=== PATIENT | female | born 1960 | race African-American/Black ===

== ENCOUNTER 2016-10-26 04:39 | Emergency (ER) | payer MEDICAID ==
[2016-03-12 18:44] VITALS: BMI 38.5
[~2016-10-26 04:39] MED LIST: AMBIEN10 MG PO; ASPIRIN EC325 M1 PO; CELEXA40 MG PO; CLONAZEPAM2 MG/TAB PO; COMPAZINE10 MG PO; EC-NAPROSYN500 MG PO; GLUCOPHAGE500 MG PO; K-DUR20 MEQ PO; LEVAQUIN500 MG PO; LEVAQUIN750 MG PO; LISINOPRIL10 MG PO; LOPID600 MG PO; NEURONTIN 300300 MG PO; ORAPRED ODT10 MG/TAB PO; OXYCODONE HCL5 MG PO; OXYCONTIN15 MG PO; PHENERGAN25 M1 PO; PREDNISONE10 MG PO; PREDNISONE20 MG PO; ROBAXIN-750750 MG PO; SEROQUEL25 MG PO; SEROQUEL50 MG PO; VENTOLIN HFA18 GM INH; VISTARIL50 MG PO; ZANAFLEX2 M1 PO
[2016-10-26 05:42] LABS: BASOPHILS 0.6 % (0.0-2.0); EOSINOPHILS 2.5 % (0-7); HEMOGLOBIN 12.6 g/dL (12-16); IMMATURE GRANULOCYTES 0.2 % (0-5); LYMPHOCYTES 41.2 % (15-50); MCH 27.6 pg (26.0-34.0); MCHC 31.5 g/dL (31.0-37.0); MCV 87.7 fL (80.0-100.0); MEAN PLATELET VOLUME 9.3 fL (7.4-10.4); MONOCYTES 8.4 % (2-11); NEUTROPHILS 47.1 % (40-80); RBC 4.56 10x6/uL (4.00-5.40); RDW 16.1 % (11.5-14.5); WBC 10.1 10x3/uL (4.8-10.8)
[2016-10-26 05:59] LABS: PLATELET COUNT 316 10x3/uL (130-400)
[2016-10-26 06:06] LABS: ALBUMIN 3.3 g/dL (3.4-5.0); ALKALINE PHOSPHATASE 94 U/L (46-116); ALT (SGPT) 21 U/L (10-68); BILIRUBIN - TOTAL 0.12 mg/dL (0.2-1.3); CALC OSMOLALITY 285 mosm/kg (275-300); CARBON DIOXIDE 30.4 mmol/L (21.0-32.0); CHLORIDE - SERUM 104 mmol/L (98-107); CREATININE - SERUM 1.1 mg/dL (0.6-1.3); GLUCOSE 140 mg/dL (74-106); POTASSIUM - SERUM 3.9 mmol/L (3.5-5.1); PROTEIN - SERUM 7.5 g/dL (6.4-8.2); SODIUM 142 mmol/L (136-145); UREA NITROGEN 15 mg/dL (7-18); eGFR NON AFRICAN AMERICAN 55 mL/min (90-120)
[2016-10-26 06:13] LABS: AMYLASE - SERUM 28 U/L (25-115); LIPASE 175 U/L (73-393)
[2016-10-26 06:14] LABS: TROPONIN-I < 0.017 ng/mL (0.000-0.060)
== END 2016-10-26 06:19 | disposition home or self-care (01) ==
LOC: D.ER 04:39
PROVIDERS: Family Medicine
DX: M54.12 Radiculopathy, cervical region (principal); I50.9 Heart failure, unspecified; J44.9 Chronic obstructive pulmonary disease, unspecified; E11.9 Type 2 diabetes mellitus without complications

== ENCOUNTER 2017-01-02 18:14 | Emergency (ER) | payer MEDICAID ==
[2016-03-12 18:44] VITALS: BMI 38.5
== END 2017-01-02 20:40 | disposition home or self-care (01) ==
LOC: D.ER 18:14
DX: S16.1XXA Strain of muscle, fascia and tendon at neck level, initial encounter (principal); W18.30XA Fall on same level, unspecified, initial encounter; M25.511 Pain in right shoulder; M62.838 Other muscle spasm; F17.200 Nicotine dependence, unspecified, uncomplicated

== ENCOUNTER 2017-10-22 07:12 | Inpatient (IN) | payer MEDICAID ==
[~2017-10-22] VITALS: Ht 175.3 cm; Wt 108.9 kg
[2017-10-22 08:11] LABS: ANION GAP 15.7 mmol/L (8-16); BILIRUBIN - TOTAL 0.52 mg/dL (0.2-1.3); CALCIUM 9.3 mg/dL (8.5-10.1); CARBON DIOXIDE 26.5 mmol/L (21.0-32.0); CREATININE - SERUM 1.3 mg/dL (0.6-1.3); POTASSIUM - SERUM 3.2 mmol/L (3.5-5.1); PROTEIN - SERUM 8.2 g/dL (6.4-8.2)
[2017-10-22 08:27] LABS: APPEARANCE CLOUDY (CLEAR); BACTERIA MODERATE /hpf (NONE SEEN); BILIRUBIN NEGATIVE (NEGATIVE); COLOR YELLOW (YELLOW); EPITHELIAL CELLS OCC /hpf (0-5); GLUCOSE NEGATIVE (NEGATIVE); KETONE NEGATIVE (NEGATIVE); NITRITE NEGATIVE (NEGATIVE); PROTEIN 2+ mg/dL (NEGATIVE); SPECIFIC GRAVITY 1.015 (1.005-1.020); UROBILINOGEN NORMAL (NORMAL); WHITE CELLS - URINE >50 /hpf (0-5)
[2017-10-22 08:28] LABS: MUCUS <1+ /lpf (NONE SEEN)
[2017-10-22 08:42] LABS: HEMATOCRIT 41.6 % (36.0-48.0); MCH 28.3 pg (26.0-34.0); MCHC 33.7 g/dL (31.0-37.0); MCV 84.2 fL (80.0-100.0); MEAN PLATELET VOLUME 9.9 fL (7.4-10.4); PLATELET COUNT 318 10x3/uL (130-400); RBC 4.94 10x6/uL (4.00-5.40); RDW 15.3 % (11.5-14.5); WBC 26.8 10x3/uL (4.8-10.8)
[2017-10-22 09:03] LABS: LYMPHOCYTES 11 % (15-50); MONOCYTES 8 % (2-11); NEUTROPHILS 80 % (40-80)
[2017-10-22 09:04] LABS: ROULEAUX OCC
[2017-10-22 09:05] LABS: PLATELET ESTIMATE NORMAL; PLATELET MORPHOLOGY GIANT PLTS PRESENT
[2017-10-22] MEDS ORDERED: PROVENTIL/2.5 MG/3 M INH (16:25)
[2017-10-22 16:33] VITALS: BP 137/95
[2017-10-22 20:00] VITALS: BP 142/76
[2017-10-22 20:23] VITALS: BMI 35.5
[2017-10-22] MEDS ORDERED: BUTRANS1 EAC1 TRANSDERM (21:14)
[2017-10-22] MEDS ORDERED: NORVASC10 MG PO (21:37)
[2017-10-23 04:00] VITALS: BP 122/74
[2017-10-23 04:53] LABS: BASOPHILS 0 % (0-2); EOSINOPHILS 0.1 % (0-7); HEMATOCRIT 41.7 % (36.0-48.0); HEMOGLOBIN 13.7 g/dL (12-16); IMMATURE GRANULOCYTES 0.5 % (0-5); LYMPHOCYTES 12.1 % (15-50); MCH 27.6 pg (26.0-34.0); MCHC 32.9 g/dL (31.0-37.0); MCV 83.9 fL (80.0-100.0); MEAN PLATELET VOLUME 10.3 fL (7.4-10.4); MONOCYTES 9.9 % (2-11); NEUTROPHILS 77.4 % (40-80); PLATELET COUNT 213 10x3/uL (130-400); RBC 4.97 10x6/uL (4.00-5.40); RDW 15.4 % (11.5-14.5); WBC 20.4 10x3/uL (4.8-10.8)
[2017-10-23 04:59] LABS: ALBUMIN 2.7 g/dL (3.4-5.0); ANION GAP 17.4 mmol/L (8-16); BILIRUBIN - TOTAL 0.4 mg/dL (0.2-1.3); CALCIUM 8.8 mg/dL (8.5-10.1); CARBON DIOXIDE 26.8 mmol/L (21.0-32.0); CREATININE - SERUM 1.3 mg/dL (0.6-1.3); POTASSIUM - SERUM 3.2 mmol/L (3.5-5.1)
[2017-10-23] MEDS ORDERED: NORVASC10 MG PO (07:32)
[2017-10-23] MEDS ORDERED: COMPAZINE10 MG PO (07:33)
[2017-10-23] MEDS ORDERED: CYCLOBENZAPRINE10 MG PO (07:34)
[2017-10-23] MEDS ORDERED: HYDROCHLOROTHIA50 MG PO (07:37)
[2017-10-23] MEDS ORDERED: HYDROXYZINE HCL50 MG PO (07:37)
[2017-10-23] MEDS ORDERED: IBUPROFEN800 MG PO (07:38)
[2017-10-23] MEDS ORDERED: GLIMEPIRIDE2 MG PO (07:38)
[2017-10-23] MEDS ORDERED: ULTRAM50 MG PO (07:42)
[2017-10-23 08:38] VITALS: BP 145/88
[2017-10-23 11:02] VITALS: BMI 35.4
[2017-10-23 11:46] VITALS: BP 136/92
[2017-10-23 16:25] VITALS: BP 133/92
[2017-10-23 20:00] VITALS: BP 138/81
[2017-10-24] VITALS: BP 123/76
[2017-10-24 04:00] VITALS: BP 150/85
[2017-10-24 06:02] LABS: BASOPHILS 0.1 % (0-2); EOSINOPHILS 1.3 % (0-7); HEMATOCRIT 33.7 % (36.0-48.0); IMMATURE GRANULOCYTES 0.4 % (0-5); MCH 27.4 pg (26.0-34.0); MCHC 32.3 g/dL (31.0-37.0); MCV 84.7 fL (80.0-100.0); MEAN PLATELET VOLUME 9.7 fL (7.4-10.4); NEUTROPHILS 71.2 % (40-80); PLATELET COUNT 246 10x3/uL (130-400); RBC 3.98 10x6/uL (4.00-5.40); RDW 15.6 % (11.5-14.5); WBC 17.3 10x3/uL (4.8-10.8)
[2017-10-24 06:08] LABS: HEMOGLOBIN 10.9 g/dL (12-16)
[2017-10-24 06:30] LABS: ALBUMIN 2.2 g/dL (3.4-5.0); BILIRUBIN - TOTAL 0.18 mg/dL (0.2-1.3); CALCIUM 8.1 mg/dL (8.5-10.1); CARBON DIOXIDE 27.2 mmol/L (21.0-32.0); CREATININE - SERUM 1.2 mg/dL (0.6-1.3); POTASSIUM - SERUM 3.2 mmol/L (3.5-5.1); PROTEIN - SERUM 6.3 g/dL (6.4-8.2)
[2017-10-24 08:06] VITALS: BP 120/74
[2017-10-24 12:02] VITALS: BP 150/86
[2017-10-24 20:00] VITALS: BP 128/87
[2017-10-24 21:39] VITALS: Ht 175.3 cm; Wt 108.9 kg
[2017-10-25] VITALS (7 sets, daily range): BP systolic 124–151; BP diastolic 78–90
[2017-10-25 05:02] LABS: BASOPHILS 0.3 % (0-2); EOSINOPHILS 2.1 % (0-7); HEMATOCRIT 34.4 % (36.0-48.0); HEMOGLOBIN 10.9 g/dL (12-16); IMMATURE GRANULOCYTES 0.4 % (0-5); LYMPHOCYTES 32.8 % (15-50); MCH 27.3 pg (26.0-34.0); MCHC 31.7 g/dL (31.0-37.0); MCV 86.2 fL (80.0-100.0); MEAN PLATELET VOLUME 9.5 fL (7.4-10.4); MONOCYTES 10.4 % (2-11); PLATELET COUNT 252 10x3/uL (130-400); RBC 3.99 10x6/uL (4.00-5.40); RDW 15.5 % (11.5-14.5)
[2017-10-25 05:03] LABS: WBC 9.1 10x3/uL (4.8-10.8)
[2017-10-25 05:25] LABS: ALBUMIN 2.1 g/dL (3.4-5.0); CALCIUM 8.3 mg/dL (8.5-10.1); CARBON DIOXIDE 30.3 mmol/L (21.0-32.0); CREATININE - SERUM 0.9 mg/dL (0.6-1.3); POTASSIUM - SERUM 3.3 mmol/L (3.5-5.1); PROTEIN - SERUM 6.1 g/dL (6.4-8.2)
[2017-10-25 05:27] LABS: BILIRUBIN - TOTAL 0.1 mg/dL (0.2-1.3)
[2017-10-26 04:00] VITALS: BP 136/80
[2017-10-26 05:15] LABS: BASOPHILS 0.4 % (0-2); EOSINOPHILS 2.4 % (0-7); HEMATOCRIT 32.9 % (36.0-48.0); HEMOGLOBIN 10.4 g/dL (12-16); IMMATURE GRANULOCYTES 0.4 % (0-5); LYMPHOCYTES 32.5 % (15-50); MCH 27.2 pg (26.0-34.0); MCHC 31.6 g/dL (31.0-37.0); MCV 86.1 fL (80.0-100.0); MEAN PLATELET VOLUME 9.3 fL (7.4-10.4); NEUTROPHILS 51.3 % (40-80); PLATELET COUNT 257 10x3/uL (130-400); RBC 3.82 10x6/uL (4.00-5.40); RDW 15.4 % (11.5-14.5)
[2017-10-26 05:40] LABS: ALBUMIN 2.2 g/dL (3.4-5.0); ANION GAP 12.4 mmol/L (8-16); BILIRUBIN - TOTAL 0.1 mg/dL (0.2-1.3); CALCIUM 8.2 mg/dL (8.5-10.1); CARBON DIOXIDE 30.4 mmol/L (21.0-32.0); CREATININE - SERUM 0.9 mg/dL (0.6-1.3); POTASSIUM - SERUM 3.8 mmol/L (3.5-5.1); PROTEIN - SERUM 6.1 g/dL (6.4-8.2)
[2017-10-26 09:14] VITALS: BP 148/90
[2017-10-26 13:54] VITALS: BP 131/77
[2017-10-26 16:25] VITALS: BP 123/74
[2017-10-27] VITALS: BP 109/74
[2017-10-27 04:00] VITALS: BP 139/87
[2017-10-27 07:42] LABS: BASOPHILS 0.3 % (0-2); EOSINOPHILS 1.1 % (0-7); HEMATOCRIT 32.4 % (36.0-48.0); HEMOGLOBIN 10.2 g/dL (12-16); IMMATURE GRANULOCYTES 0.3 % (0-5); LYMPHOCYTES 22.5 % (15-50); MCH 27.2 pg (26.0-34.0); MCHC 31.5 g/dL (31.0-37.0); MCV 86.4 fL (80.0-100.0); NEUTROPHILS 64.8 % (40-80); PLATELET COUNT 285 10x3/uL (130-400); RBC 3.75 10x6/uL (4.00-5.40); RDW 15.3 % (11.5-14.5)
[2017-10-27 07:47] LABS: WBC 9.1 10x3/uL (4.8-10.8)
[2017-10-27 08:00] VITALS: BP 147/82
[2017-10-27 08:03] LABS: ALBUMIN 2.3 g/dL (3.4-5.0); ANION GAP 13.1 mmol/L (8-16); BILIRUBIN - TOTAL 0.1 mg/dL (0.2-1.3); CALCIUM 8.5 mg/dL (8.5-10.1); CARBON DIOXIDE 29.8 mmol/L (21.0-32.0); CREATININE - SERUM 1.1 mg/dL (0.6-1.3); POTASSIUM - SERUM 3.9 mmol/L (3.5-5.1); PROTEIN - SERUM 6.9 g/dL (6.4-8.2)
[2017-10-27 11:54] VITALS: BP 119/71
[2017-10-27 15:39] VITALS: BP 118/70
[2017-10-28] VITALS: BP 135/84
[2017-10-28 04:00] VITALS: BP 105/67
[2017-10-28 05:02] LABS: BASOPHILS 0.1 % (0-2); EOSINOPHILS 1.3 % (0-7); HEMOGLOBIN 10.4 g/dL (12-16); IMMATURE GRANULOCYTES 0.4 % (0-5); LYMPHOCYTES 28.8 % (15-50); MCH 27.2 pg (26.0-34.0); MCHC 31.5 g/dL (31.0-37.0); MCV 86.4 fL (80.0-100.0); MEAN PLATELET VOLUME 9.4 fL (7.4-10.4); MONOCYTES 14.4 % (2-11); PLATELET COUNT 310 10x3/uL (130-400); RBC 3.82 10x6/uL (4.00-5.40); RDW 15.2 % (11.5-14.5); WBC 7.4 10x3/uL (4.8-10.8)
[2017-10-28 05:24] LABS: ALBUMIN 2.2 g/dL (3.4-5.0); ANION GAP 11.5 mmol/L (8-16); BILIRUBIN - TOTAL 0.1 mg/dL (0.2-1.3); CARBON DIOXIDE 30.5 mmol/L (21.0-32.0); PROTEIN - SERUM 6.8 g/dL (6.4-8.2)
[2017-10-28 09:42] VITALS: BP 141/80
[2017-10-28 13:19] VITALS: BP 160/99
[2017-10-28 17:02] VITALS: BP 126/90
[2017-10-29] VITALS: BP 124/81
[2017-10-29 04:00] VITALS: BP 124/86
[2017-10-29 05:28] LABS: BASOPHILS 0.3 % (0-2); EOSINOPHILS 2.3 % (0-7); HEMATOCRIT 36.3 % (36.0-48.0); HEMOGLOBIN 11.5 g/dL (12-16); IMMATURE GRANULOCYTES 0.3 % (0-5); LYMPHOCYTES 44.6 % (15-50); MCH 27.5 pg (26.0-34.0); MCHC 31.7 g/dL (31.0-37.0); MCV 86.8 fL (80.0-100.0); MEAN PLATELET VOLUME 9.1 fL (7.4-10.4); MONOCYTES 12.6 % (2-11); NEUTROPHILS 39.9 % (40-80); PLATELET COUNT 348 10x3/uL (130-400); RBC 4.18 10x6/uL (4.00-5.40); WBC 6.1 10x3/uL (4.8-10.8)
[2017-10-29 05:48] LABS: ALBUMIN 2.3 g/dL (3.4-5.0); ALKALINE PHOSPHATASE 117 U/L (46-116); ALT (SGPT) 21 U/L (10-68); CALC OSMOLALITY 274 mosm/kg (275-300); CALCIUM 8.5 mg/dL (8.5-10.1); CARBON DIOXIDE 30.7 mmol/L (21.0-32.0); CHLORIDE - SERUM 101 mmol/L (98-107); CREATININE - SERUM 0.8 mg/dL (0.6-1.3); GLUCOSE 86 mg/dL (74-106); PROTEIN - SERUM 7.3 g/dL (6.4-8.2); SODIUM 139 mmol/L (136-145); UREA NITROGEN 7 mg/dL (7-18); eGFR NON AFRICAN AMERICAN 78 mL/min (90-120)
[2017-10-29 08:38] VITALS: BP 133/76
[2017-10-29 12:28] VITALS: BP 125/69
[2017-10-29 12:29] LABS: APPEARANCE CLEAR (CLEAR); COLOR YELLOW (YELLOW); GLUCOSE NEGATIVE (NEGATIVE); KETONE NEGATIVE (NEGATIVE); NITRITE NEGATIVE (NEGATIVE); PROTEIN NEGATIVE (NEGATIVE)
[2017-10-29 12:30] LABS: BILIRUBIN NEGATIVE (NEGATIVE); UROBILINOGEN NORMAL (NORMAL)
[2017-10-29 16:20] VITALS: BP 140/80
[2017-10-30] VITALS: BP 126/70
[2017-10-30 04:56] LABS: BASOPHILS 0.2 % (0-2); EOSINOPHILS 2.3 % (0-7); HEMATOCRIT 35.6 % (36.0-48.0); HEMOGLOBIN 11.3 g/dL (12-16); IMMATURE GRANULOCYTES 0.5 % (0-5); LYMPHOCYTES 48.4 % (15-50); MCH 27.6 pg (26.0-34.0); MCHC 31.7 g/dL (31.0-37.0); MCV 86.8 fL (80.0-100.0); MEAN PLATELET VOLUME 8.8 fL (7.4-10.4); MONOCYTES 12.4 % (2-11); NEUTROPHILS 36.2 % (40-80); PLATELET COUNT 320 10x3/uL (130-400); RDW 14.9 % (11.5-14.5)
[2017-10-30 05:03] LABS: WBC 4.3 10x3/uL (4.8-10.8)
[2017-10-30 05:13] LABS: ALBUMIN 2.2 g/dL (3.4-5.0); ALKALINE PHOSPHATASE 105 U/L (46-116); ALT (SGPT) 17 U/L (10-68); CALC OSMOLALITY 276 mosm/kg (275-300); CALCIUM 8.1 mg/dL (8.5-10.1); CHLORIDE - SERUM 103 mmol/L (98-107); CREATININE - SERUM 0.8 mg/dL (0.6-1.3); GLUCOSE 104 mg/dL (74-106); POTASSIUM - SERUM 3.5 mmol/L (3.5-5.1); PROTEIN - SERUM 6.6 g/dL (6.4-8.2); SODIUM 140 mmol/L (136-145); UREA NITROGEN 7 mg/dL (7-18); eGFR NON AFRICAN AMERICAN 78 mL/min (90-120)
[2017-10-30 06:00] VITALS: BP 116/76
[2017-10-30 08:42] VITALS: BP 142/81
[2017-10-30 11:49] VITALS: BP 160/79
[2017-10-30 15:51] VITALS: BP 132/83
[2017-10-30 20:00] VITALS: BP 152/109
[2017-10-31 04:00] VITALS: BP 145/90
[2017-10-31 05:46] LABS: BASOPHILS 0.3 % (0-2); EOSINOPHILS 1.3 % (0-7); HEMATOCRIT 37.5 % (36.0-48.0); HEMOGLOBIN 11.7 g/dL (12-16); IMMATURE GRANULOCYTES 0.2 % (0-5); LYMPHOCYTES 54.7 % (15-50); MCHC 31.2 g/dL (31.0-37.0); MCV 86.6 fL (80.0-100.0); MEAN PLATELET VOLUME 9.1 fL (7.4-10.4); MONOCYTES 8.4 % (2-11); NEUTROPHILS 35.1 % (40-80); PLATELET COUNT 339 10x3/uL (130-400); RBC 4.33 10x6/uL (4.00-5.40); RDW 15.1 % (11.5-14.5); WBC 5.9 10x3/uL (4.8-10.8)
[2017-10-31 06:19] LABS: ALBUMIN 2.4 g/dL (3.4-5.0); BILIRUBIN - TOTAL 0.1 mg/dL (0.2-1.3); CALCIUM 8.4 mg/dL (8.5-10.1); CREATININE - SERUM 0.9 mg/dL (0.6-1.3); PROTEIN - SERUM 7.1 g/dL (6.4-8.2)
[2017-10-31 08:41] VITALS: BP 123/82
[2017-10-31] MEDS ORDERED: BUTRANS1 EAC1 TRANSDERM (09:44)
[2017-10-31] MEDS ORDERED: LEVAQUIN750 MG PO (09:45)
[2017-10-31] MEDS ORDERED: IMITREX50 MG PO (09:45)
[2017-10-31] MEDS ORDERED: ULTRAM50 MG PO (09:47)
[2017-10-31] MEDS ORDERED: OXY IR30 MG PO (09:49)
[2017-10-31 11:55] VITALS: BP 128/79
== END 2017-10-31 13:00 | disposition home health service (06) | DRG 690 ==
LOC: D.ER 07:12 → D.MS 13:28
PROVIDERS: Family Medicine; Legal Medicine; Student in an Organized Health Care Education/Training Program
PROC: 05HC33Z Insertion of Infusion Device into Left Basilic Vein, Percutaneous Approach (ICD-10-PCS; principal; 2017-10-23)
PROC: B54NZZA Ultrasonography of Left Upper Extremity Veins, Guidance (ICD-10-PCS; 2017-10-23)
PROC: 05HC33Z Insertion of Infusion Device into Left Basilic Vein, Percutaneous Approach (ICD-10-PCS; 2017-10-27)
PROC: B54NZZA Ultrasonography of Left Upper Extremity Veins, Guidance (ICD-10-PCS; 2017-10-27)
DX: N12 Tubulo-interstitial nephritis, not specified as acute or chronic (principal); B96.20 Unspecified Escherichia coli [E. coli] as the cause of diseases classified elsewhere; K80.80 Other cholelithiasis without obstruction; R51 Headache; E11.43 Type 2 diabetes mellitus with diabetic autonomic (poly)neuropathy; R53.83 Other fatigue

== ENCOUNTER 2018-02-12 06:37 | Emergency (ER) | payer MEDICAID ==
[2017-10-24 21:39] VITALS: BMI 35.4
[~2018-02-12 06:37] MED LIST changes: +BUTRANS1 EAC1 TRANSDERM; +CYCLOBENZAPRINE10 MG PO; +GLIMEPIRIDE2 MG PO; +HYDROCHLOROTHIA50 MG PO; +HYDROXYZINE HCL50 MG PO; +IBUPROFEN800 MG PO; +IMITREX50 MG PO; +NORVASC10 MG PO; +OXY IR30 MG PO; +PROVENTIL/2.5 MG/3 M INH; +ULTRAM50 MG PO
== END 2018-02-12 08:35 | disposition home or self-care (01) ==
LOC: D.ER 06:37
DX: R51 Headache (principal); I50.9 Heart failure, unspecified; E11.9 Type 2 diabetes mellitus without complications; G70.00 Myasthenia gravis without (acute) exacerbation

== ENCOUNTER 2018-04-13 07:35 | Emergency (ER) | payer MEDICAID ==
[~2018-04-13] VITALS: Ht 175.3 cm; Wt 117.9 kg
[2018-04-13 07:38] VITALS: Ht 175.3 cm; Wt 117.9 kg
[2018-04-13 10:41] LABS: CALC OSMOLALITY 276 mosm/kg (275-300); CALCIUM 8.5 mg/dL (8.5-10.1); CARBON DIOXIDE 24.2 mmol/L (21.0-32.0); CHLORIDE - SERUM 104 mmol/L (98-107); CREATININE - SERUM 0.8 mg/dL (0.6-1.3); GLUCOSE 96 mg/dL (74-106); POTASSIUM - SERUM 5.1 mmol/L (3.5-5.1); SODIUM 139 mmol/L (136-145); UREA NITROGEN 9 mg/dL (7-18); eGFR NON AFRICAN AMERICAN 78 mL/min (90-120)
[2018-04-13 10:57] LABS: HEMATOCRIT 48.8 % (36.0-48.0); HEMOGLOBIN 15.4 g/dL (12-16); MCH 27.8 pg (26.0-34.0); MCHC 31.6 g/dL (31.0-37.0); MCV 88.1 fL (80.0-100.0); MEAN PLATELET VOLUME 10.2 fL (7.4-10.4); PLATELET COUNT 332 10x3/uL (130-400); RBC 5.54 10x6/uL (4.00-5.40); RDW 15.6 % (11.5-14.5); WBC 7.9 10x3/uL (4.8-10.8)
[2018-04-13 11:15] VITALS: BP 118/71
[2018-04-13 13:07] LABS: BASOPHILS 2 % (0-2); EOSINOPHILS 1 % (0-7); LYMPHOCYTES 59 % (15-50); MONOCYTES 12 % (2-11); NEUTROPHILS 25 % (40-80); PLATELET ESTIMATE INCREASED; PLATELET MORPHOLOGY PLT CLUMPS PRESENT
== END 2018-04-13 11:17 | disposition home or self-care (01) ==
LOC: D.ER 07:35
PROVIDERS: Family Medicine
DX: G43.909 Migraine, unspecified, not intractable, without status migrainosus (principal); E11.9 Type 2 diabetes mellitus without complications; G70.00 Myasthenia gravis without (acute) exacerbation; I10 Essential (primary) hypertension; I50.9 Heart failure, unspecified; F17.200 Nicotine dependence, unspecified, uncomplicated

== ENCOUNTER 2018-06-16 14:30 | Emergency (ER) | payer MEDICAID ==
[~2018-06-16] VITALS: Ht 175.3 cm; Wt 68.2 kg
[2018-06-16 14:53] VITALS: Ht 175.3 cm; Wt 68.2 kg
[2018-06-16 16:49] LABS: APPEARANCE CLEAR (CLEAR); BILIRUBIN NEGATIVE (NEGATIVE); COLOR YELLOW (YELLOW); GLUCOSE NEGATIVE (NEGATIVE); KETONE NEGATIVE (NEGATIVE); NITRITE NEGATIVE (NEGATIVE); PROTEIN NEGATIVE (NEGATIVE); SPECIFIC GRAVITY 1.015 (1.005-1.020); UROBILINOGEN NORMAL (NORMAL)
[2018-06-16 17:03] LABS: UDS - AMPHET NEGATIVE QUAL (NEGATIVE); UDS - BARB NEGATIVE QUAL (NEGATIVE); UDS - BENZO POSITIVE QUAL (NEGATIVE); UDS - COCAINE NEGATIVE QUAL (NEGATIVE); UDS - OPIATE NEGATIVE QUAL (NEGATIVE)
[2018-06-16 17:12] LABS: UDS - PCP NEGATIVE QUAL (NEGATIVE); UDS - THC NEGATIVE QUAL (NEGATIVE)
[2018-06-16 17:29] LABS: HEMATOCRIT 43.2 % (36.0-48.0); MCHC 32.4 g/dL (31.0-37.0); MCV 86.4 fL (80.0-100.0); MEAN PLATELET VOLUME 9.6 fL (7.4-10.4); PLATELET COUNT 359 10x3/uL (130-400); RDW 15.3 % (11.5-14.5); WBC 8.2 10x3/uL (4.8-10.8)
[2018-06-16 17:56] LABS: ANION GAP 10.1 mmol/L (8-16); BILIRUBIN - TOTAL 0.16 mg/dL (0.2-1.3); CALCIUM 8.9 mg/dL (8.5-10.1); CARBON DIOXIDE 31.2 mmol/L (21.0-32.0); CREATININE - SERUM 1.3 mg/dL (0.6-1.3); POTASSIUM - SERUM 3.3 mmol/L (3.5-5.1); PROTEIN - SERUM 7.6 g/dL (6.4-8.2)
[2018-06-16 18:05] LABS: THYROID STIMULATING HORMONE 0.96 uIU/mL (0.36-3.74)
[2018-06-16 18:33] LABS: EOSINOPHILS 1 % (0-7); LYMPHOCYTES 55 % (15-50); MONOCYTES 1 % (2-11); NEUTROPHILS 43 % (40-80)
[2018-06-16 18:34] LABS: PLATELET ESTIMATE NORMAL
[2018-06-16 18:35] VITALS: BP 110/71
== END 2018-06-16 18:36 | disposition home or self-care (01) ==
LOC: D.ER 14:30
PROVIDERS: Emergency Medicine
DX: F32.9 Major depressive disorder, single episode, unspecified (principal); G89.29 Other chronic pain; E11.9 Type 2 diabetes mellitus without complications; F17.200 Nicotine dependence, unspecified, uncomplicated

== ENCOUNTER 2018-06-23 14:31 | Emergency (ER) | payer MEDICAID ==
[~2018-06-23] VITALS: Ht 175.3 cm; Wt 77.3 kg
[2018-06-23 14:40] VITALS: BP 104/77; Ht 175.3 cm; Wt 77.3 kg
== END 2018-06-23 18:41 | disposition left against medical advice (07) ==
LOC: D.ER 14:31
DX: R51 Headache (principal)

== ENCOUNTER → 2019-04-12 13:08 | Outpatient (CLI) | payer MEDICAID ==
[2018-06-23 14:40] VITALS: BMI 25.1
== END | disposition home or self-care (01) ==
LOC: D.RAD 13:08
PROVIDERS: ATTEND Emergency Medicine
DX: M79.651 Pain in right thigh (principal)

== ENCOUNTER 2019-07-29 11:47 | Emergency (ER) | payer MEDICAID ==
[~2019-07-29] VITALS: Ht 175.3 cm; Wt 118.2 kg
[2019-07-29 11:53] VITALS: Ht 175.3 cm; Wt 118.2 kg
[2019-07-29] MEDS ORDERED: MAXALT MLT10 MG/TAB PO (12:03)
[2019-07-29] MEDS ORDERED: PHENERGAN25 M1 PO (12:04)
[2019-07-29] MEDS ORDERED: LISINOPRIL-HCT1 EAC7 PO (12:04)
[2019-07-29] MEDS ORDERED: ABILIFY10 MG PO (12:05)
[2019-07-29] MEDS ORDERED: CARAFATE1 G PO (12:05)
[2019-07-29] MEDS ORDERED: PROZAC40 MG PO (12:06)
[2019-07-29] MEDS ORDERED: LIPITOR20 MG PO (12:06)
[2019-07-29] MEDS ORDERED: VALIUM5 MG PO (12:07)
[2019-07-29] MEDS ORDERED: ELAVIL25 MG PO (12:07)
[2019-07-29 13:32] LABS: BASOPHILS 0.2 % (0-2); EOSINOPHILS 0.9 % (0-7); HEMATOCRIT 35.9 % (36.0-48.0); HEMOGLOBIN 10.9 g/dL (12-16); IMMATURE GRANULOCYTES 0.2 % (0-5); LYMPHOCYTES 28.4 % (15-50); MCH 26.6 pg (26.0-34.0); MCHC 30.4 g/dL (31.0-37.0); MCV 87.6 fL (80.0-100.0); MEAN PLATELET VOLUME 8.9 fL (7.4-10.4); NEUTROPHILS 64.3 % (40-80); PLATELET COUNT 328 10x3/uL (130-400); RDW 15.8 % (11.5-14.5); WBC 8.9 10x3/uL (4.8-10.8)
[2019-07-29 13:46] LABS: CALC OSMOLALITY 276 mosm/kg (275-300); CALCIUM 8.3 mg/dL (8.5-10.1); CARBON DIOXIDE 34.6 mmol/L (21.0-32.0); CHLORIDE - SERUM 103 mmol/L (98-107); GLUCOSE 86 mg/dL (74-106); POTASSIUM - SERUM 3.7 mmol/L (3.5-5.1); SODIUM 140 mmol/L (136-145); UREA NITROGEN 10 mg/dL (7-18); eGFR NON AFRICAN AMERICAN 61 mL/min (90-120)
[2019-07-29 14:01] LABS: ALBUMIN 2.6 g/dL (3.4-5.0); ALKALINE PHOSPHATASE 131 U/L (46-116); ALT (SGPT) 31 U/L (10-68); AMYLASE - SERUM 24 U/L (25-115); BILIRUBIN - TOTAL 0.19 mg/dL (0.2-1.3); CKMB 3.2 U/L (0.0-3.6); CREATINE KINASE 2817 UL (21-215); LIPASE 159 U/L (73-393); PROTEIN - SERUM 7.1 g/dL (6.4-8.2); TROPONIN-I < 0.017 ng/mL (0.000-0.060)
[2019-07-29] MEDS ORDERED: OMEPRAZOLE20 M1 PO (15:43)
[2019-07-29] MEDS ORDERED: PHENERGAN25 MG RC (15:43)
[2019-07-29 15:56] VITALS: BP 123/86
== END 2019-07-29 16:32 | disposition home or self-care (01) ==
LOC: D.ER 11:47
PROVIDERS: Emergency Medicine
DX: R10.9 Unspecified abdominal pain (principal); R11.2 Nausea with vomiting, unspecified

== ENCOUNTER 2019-11-07 09:49 | Inpatient (IN) | payer MEDICAID ==
[~2019-11-07] VITALS: Ht 152.4 cm; Wt 108.9 kg
[~2019-11-07 09:49] MED LIST changes: +ABILIFY10 MG PO; +CARAFATE1 G PO; +ELAVIL25 MG PO; +LIPITOR20 MG PO; +LISINOPRIL-HCT1 EAC7 PO; +MAXALT MLT10 MG/TAB PO; +OMEPRAZOLE20 M1 PO; +PHENERGAN25 MG RC; +PROZAC40 MG PO; +VALIUM5 MG PO
[2019-11-07 10:20] VITALS: BP 105/43
[2019-11-07 10:25] LABS: BASOPHILS 0.2 % (0-2); EOSINOPHILS 1.6 % (0-7); HEMATOCRIT 32.8 % (36.0-48.0); HEMOGLOBIN 10.3 g/dL (12-16); IMMATURE GRANULOCYTES 0.1 % (0-5); LYMPHOCYTES 36.1 % (15-50); MCHC 31.4 g/dL (31.0-37.0); MCV 86.1 fL (80.0-100.0); MEAN PLATELET VOLUME 8.8 fL (7.4-10.4); MONOCYTES 7.8 % (2-11); NEUTROPHILS 54.2 % (40-80); RBC 3.81 10x6/uL (4.00-5.40); RDW 17.5 % (11.5-14.5); WBC 8.6 10x3/uL (4.8-10.8)
[2019-11-07 10:26] LABS: PLATELET COUNT 219 10x3/uL (130-400)
[2019-11-07 10:33] LABS: APTT 30.6 SECONDS (22.8-39.4); INR 0.96 (0.85-1.17); PROTIME 12.7 SECONDS (11.6-15.0)
[2019-11-07 10:40] LABS: CALC OSMOLALITY 276 mosm/kg (275-300); CALCIUM 8.4 mg/dL (8.5-10.1); CARBON DIOXIDE 27.7 mmol/L (21.0-32.0); CHLORIDE - SERUM 103 mmol/L (98-107); CREATININE - SERUM 1.2 mg/dL (0.6-1.3); POTASSIUM - SERUM 4.3 mmol/L (3.5-5.1); SODIUM 137 mmol/L (136-145); UREA NITROGEN 16 mg/dL (7-18); eGFR NON AFRICAN AMERICAN 49 mL/min (90-120)
[2019-11-07 10:41] LABS: GLUCOSE 143 mg/dL (74-106)
[2019-11-07 10:54] LABS: ALBUMIN 2.4 g/dL (3.4-5.0); ALKALINE PHOSPHATASE 116 U/L (30-120); ALT (SGPT) 31 U/L (10-68); BILIRUBIN - TOTAL 0.32 mg/dL (0.2-1.3); CKMB 2.6 U/L (0.0-3.6); PRO BNP 71 pg/mL (0-125); PROTEIN - SERUM 7.1 g/dL (6.4-8.2)
[2019-11-07 10:56] LABS: CREATINE KINASE 1711 UL (21-215); TROPONIN-I < 0.017 ng/mL (0.000-0.060)
[2019-11-07 11:20] VITALS: BP 103/58
--- NOTE | 2019-11-07 12:00 | NUR ---
PT ASSISTED WITH TRANSFERING TO BEDSIDE TOILET AND BACK INTO BED. PT LYING IN BED, RESPIRATIONS EVEN AND UNLABORED. NO SIGNS OF DISRESS. CALL LIGHT IN REACH. WILL CONTINUE TO MONITOR.
--- NOTE | 2019-11-07 12:36 | NUR ---
URINE SENT TO LAB AT THIS TIME.
[2019-11-07 12:47] LABS: BILIRUBIN NEGATIVE (NEGATIVE); GLUCOSE NEGATIVE (NEGATIVE); KETONE NEGATIVE (NEGATIVE); NITRITE NEGATIVE (NEGATIVE); SPECIFIC GRAVITY 1.005 (1.005-1.020)
--- NOTE | 2019-11-07 15:40 | NUR ---
PT ARRIVES TO ROOM VIA STRETCHER ESCORTED BY HOSPITAL STAFF. PT IS AAO X 4. RESPIRATIONS ARE EVEN AND UNLABORED. O2 VIA NC @ 2L. PT REPORTS PAIN TO LEFT SHOULDER BLADE AREA WHEN COUGHING. PT WITH FREQUENT PRODUCTIVE COUGH. PT STATES CONCERNS RELATED TO HOME MEDICATION. WILL REVIEW. PT REPORTS PAIN IS GENERALIZED AND IS DESCRIBED CHRONIC IN NATURE. PT AMBULATES FROM STRETCHER TO BED WITH STANDBY ASSIST. PT DENIES PRESENCE OF DIZZINESS UPON AMBULATION. PT WITH SCABS TO BLE. 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 ALL FALL PRECAUTIONS IN PLACE. BRYAN ALARM IS ON AND WORKING. BED IS IN THE LOWEST POSITION. CALL LIGHT AND BEDSIDE TABLE ARE WITHIN REACH. SIDE RAILS X 2. PT DENIES FURTHER NEEDS. DROPLET PRECAUTIONS PLACED. WILL CONT TO MONITOR.
[2019-11-07] MEDS ORDERED: PERCOCET 7.5/321 TAB (15:51)
[2019-11-07 16:02] VITALS: BP 118/66
--- NOTE | 2019-11-07 17:53 | NUR ---
GRINDER SET UP OPERATOR SURFACE PLACED PER ORDER. INCENTIVE SPIROMETER AT BEDSIDE. PT EDUCATED ON USE AND IMPORTANCE OF USE OF IS. PT VERBALIZES UNDERSTANDING AND GIVES APPROPRIATE DEMONSTRATION. PT DENIES FURTHER NEEDS. FALL PRECAUTIONS IN PLACE. BED IS IN THE LOWEST POSITION. CALL LIGHT AND BEDSIDE TABLE ARE WITIHN REACH. SIDE RIALS X 2
[2019-11-07 20:00] VITALS: BP 115/72
--- NOTE | 2019-11-07 21:00 | NUR ---
AWAKE,ALERT, NO COMPLAINTS VOICED. RESP UNLABORED. NO DISTESS NOTED. IV TO RIGHT HAND INTACT WITHOUT REDNESS OR EDEMA NOTED. CL IN REACH
[2019-11-08] VITALS: BP 110/64
--- NOTE | 2019-11-08 02:10 | NUR ---
I have reviewed this patient and I concur with the Shift Assessment completed by the Licensed Practical Nurse today this shift.
[2019-11-08 04:00] VITALS: BP 109/55
[2019-11-08 04:50] LABS: BASOPHILS 0.3 % (0-2); EOSINOPHILS 1.5 % (0-7); HEMATOCRIT 32.9 % (36.0-48.0); HEMOGLOBIN 10.2 g/dL (12-16); IMMATURE GRANULOCYTES 0.3 % (0-5); LYMPHOCYTES 36.2 % (15-50); MCH 26.8 pg (26.0-34.0); MCV 86.4 fL (80.0-100.0); MEAN PLATELET VOLUME 8.9 fL (7.4-10.4); MONOCYTES 8.9 % (2-11); NEUTROPHILS 52.8 % (40-80); PLATELET COUNT 244 10x3/uL (130-400); RBC 3.81 10x6/uL (4.00-5.40); RDW 17.6 % (11.5-14.5); WBC 7.9 10x3/uL (4.8-10.8)
[2019-11-08 05:22] LABS: ANION GAP 10.6 mmol/L (8-16); CARBON DIOXIDE 27.6 mmol/L (21.0-32.0); POTASSIUM - SERUM 4.2 mmol/L (3.5-5.1)
--- NOTE | 2019-11-08 07:15 | NUR ---
REC'D IN BED. RESP EVEN AND UNLABORED WITH NO DISTRESS NOTED. CAN EXPRESS NEEDS AND WANTS. NO C/O NOTED OR VOICED. ASSESSMENT COMPLETED. C/L IN REACH AT BEDSIDE.
[2019-11-08 08:23] VITALS: BP 135/77
--- NOTE | 2019-11-08 12:17 | NUR ---
WAS MEDICATED WITH OXY PER ORDERS AT THIS TIME FOR C/O GENERALIZED PAIN RATING 9/10 ON PAIN SCALE. C/L IN REACH AT BEDSIDE.
[2019-11-08 12:18] VITALS: BP 120/68
[2019-11-08 13:02] VITALS: Ht 152.4 cm; Wt 108.9 kg
[2019-11-08 16:43] VITALS: BP 139/78
[2019-11-08 16:54] LABS: CREATINE KINASE 728 UL (21-215); TROPONIN-I < 0.017 ng/mL (0.000-0.060)
[2019-11-08 16:55] LABS: CKMB 0.4 U/L (0.0-3.6)
--- NOTE | 2019-11-08 18:45 | NUR ---
I have reviewed this patient and I concur with the Shift Assessment completed by the Licensed Practical Nurse today this shift.
--- NOTE | 2019-11-08 19:11 | NUR ---
MEDICATED AT THIS TIME WITH OXY 5 FOR PAIN RATING 9/10 ON PAIN SCALE AND VALIUM FOR MUSCLE SPAMS. C/L IN REACH AT BEDSIDE.
--- NOTE | 2019-11-08 21:18 | NUR ---
TEMP OF 101.1 GAVE TYLENOL 650MG. P.O. AT 2109
[2019-11-08 21:39] VITALS: BP 112/66
[2019-11-09 01:26] VITALS: BP 102/59
--- NOTE | 2019-11-09 02:50 | NUR ---
iv INFILLTRATED TO RIGHT HAND. ATEMPTED TO RESTART PT PULLED BACK HER HAND AND STATED THAT HURT DON'T I WANT SOMEONE THAT KNOEWS WHAT THEY ARE DOING, I'M NOT GOING TO TO BE STUCK 2-3 TIMES AND HAVE MY HAND HURTTING. EDUCATED PT THAT IT HURTS SOMETIMES WHEN AN IV IS STARTED. REFUSED TOMLET THIS NURSE ATEMPT AGAING EDUCATED HER THAT WE CAN PUT IN A VASCYLAR ACCESS CONSULT. THIS IS WHAT SHE WANTS.
[2019-11-09 05:30] VITALS: BP 152/67
[2019-11-09] MEDS ORDERED: TAMIFLU75 MG PO (08:46)
--- NOTE | 2019-11-09 09:00 | NUR ---
ASKED PT IF THIS NURSE COULD RESITE HER IV AT THIS TIME PT STATED " LET'S DO IT LATER BABY. I FEEL BAD AT THIS MOMENT." NURSE VOICE UNDERSTANDING AND LEFT ROOM. C/L IN REACH AT BEDSIDE.
--- NOTE | 2019-11-09 09:13 | NUR ---
PT WAS MEDICATED WITH APAP 650MG FOR ELEVATED TEMP OF 101.3. WILL RECHECK IN AN HOUR. C/L IN REACH AT BEDSIDE.
[2019-11-09 09:28] VITALS: BP 122/69
--- NOTE | 2019-11-09 10:15 | NUR ---
RECHECKED PT TEMP AT THIS TIME WITH TEMP BEING 102.4. CALLED WAS PLACED TO ASYA MICHAUD. AWAITING RESPONSE. C/L IN REACH AT BEDSIDE.
--- NOTE | 2019-11-09 10:45 | NUR ---
REC'D RESPONSE BACK FROM Sonali CHILDRESS APN RECIEVED ORDERS FOR MORTIN 800 MG Q 6 HRS PRN AND BLOOD CULTURE X 2. C/L SHE WAS GIVEN PRN MORTIN AT THIS TIME. C/L IN REACH AT BEDSIDE.
--- NOTE | 2019-11-09 11:08 | NUR ---
BATH AND LINEN CHANGED AT THIS TIME VIA THIS NURSE. PT VERY THANKFUL FOR BATH STATING NO ONE HAS EVEN OFFERED TO GIVEN ME A BATH SINCE I BEEN HERE. C/L IN REACH AT BEDSIDE.
[2019-11-09 12:45] VITALS: BP 120/65
--- NOTE | 2019-11-09 14:29 | NUR ---
I have reviewed this patient and I concur with the Shift Assessment completed by the Licensed Practical Nurse today this shift.
--- NOTE | 2019-11-09 16:02 | NUR ---
ATTEMPTED TO RESITE PT IV WITH TWO UNSUCCESSFUL STICK. THEN ANOTHER NURSE CAME AND ATTEMPTED TO STICK PT X ONE WHICH WAS UNSUCCESSFUL. C/L IN REACH AT BEDSIDE.
--- NOTE | 2019-11-09 16:32 | NUR ---
JASWANT IRAHETA WAS CALLED ABOUT NOT BEING ABLE TO RESITE IV AT THIS TIME. CONTRACT PROJECT MANAGER STATED JUST LIVE IV OUT IF PT IS DRINKING WELL. THIS NURSE INFORMED PT AN PT VOICE UNDERSTANDING OF THE IMPORTANCE OF DRINKING FLUIDS. C/L IN REACH AT BEDSIDE.
[2019-11-09 17:17] VITALS: BP 112/60
--- NOTE | 2019-11-09 20:15 | NUR ---
ALERT AND ORIENTED X4. CONFUSED AT TIMES. VERY IRRITABLE AND DEMANDING. WANTS PAIN MED AND VALIUM. EXPLAINED THAT STAFF COULD GIVE EITHER ONE NOW BUT NOT BOTH AT THE SAME TIME AND THAT SHE WOULD NEED TO WAIT ATLEAST AN HOUR IN BETWEEN. PT CURSING AND YELLING. MEDICATED WITH PERCOCET AT THIS TIME FOR C/O GEN PAIN. RESP IRREG. SOB. O2 @ 2L/NC. TELEMETRY SHOWS ST WITH RATE OF 102. REPORTS PROD COUGH WITH YELLOW SPUTUM BUT NONE SEEN. PT HAS ATLEAST 5 OR 6 BLANKETS ON HER. NO IV ACCESS AT THIS TIME. AMB. CL IN REACH.
--- NOTE | 2019-11-09 21:51 | NUR ---
MEDICATED WITH VALIUM PER REQUEST. PT TALKING ON PHONE AND CURSING WHO SHE IS TALKING TO. CL IN REACH.
[2019-11-09 23:09] VITALS: BP 141/77
--- NOTE | 2019-11-10 01:21 | NUR ---
PT LAYING IN BED WITH 5 BLANKETS ON. GENERAL ENGINEER REPORTS ELEVATED TEMP OF 103. MEDICATED WITH MOTRIN AT THIS TIME. REMOVED BLANKETS FROM PT AND TURNED HEATER OFF. PT LYING IN BED TALKING ON CELL PHONE. CL IN REACH.
[2019-11-10 01:45] VITALS: BP 102/57
--- NOTE | 2019-11-10 03:15 | NUR ---
RECHECKED TEMP 99.1.
[2019-11-10 05:20] VITALS: BP 99/62
--- NOTE | 2019-11-10 05:20 | NUR ---
AM MED GIVEN. DROWSY. STATES SHE IS DOING OK. CL IN REACH. NO DISTRESS.
[2019-11-10 05:28] LABS: BASOPHILS 0.2 % (0-2); EOSINOPHILS 0.6 % (0-7); HEMATOCRIT 30.4 % (36.0-48.0); HEMOGLOBIN 9.5 g/dL (12-16); IMMATURE GRANULOCYTES 0.3 % (0-5); LYMPHOCYTES 23.4 % (15-50); MCHC 31.3 g/dL (31.0-37.0); MCV 86.4 fL (80.0-100.0); MEAN PLATELET VOLUME 9.3 fL (7.4-10.4); MONOCYTES 12.6 % (2-11); NEUTROPHILS 62.9 % (40-80); PLATELET COUNT 257 10x3/uL (130-400); RBC 3.52 10x6/uL (4.00-5.40)
[2019-11-10 05:36] LABS: ANION GAP 11.1 mmol/L (8-16); CALCIUM 8.3 mg/dL (8.5-10.1); CARBON DIOXIDE 28.7 mmol/L (21.0-32.0); POTASSIUM - SERUM 3.8 mmol/L (3.5-5.1)
[2019-11-10 05:45] LABS: WBC 12.4 10x3/uL (4.8-10.8)
[2019-11-10 05:56] LABS: CREATININE - SERUM 1.8 mg/dL (0.6-1.3)
--- NOTE | 2019-11-10 08:03 | NUR ---
MEDICATED WITH PERCOCET FOR C/O GEN PAIN. CL IN REACH.
[2019-11-10 09:04] VITALS: BP 135/78
--- NOTE | 2019-11-10 09:30 | NUR ---
PATIENT IV STARTED BY IV ACCESS NURSE CHRYSTAL.
[2019-11-10 13:41] VITALS: BP 109/68
--- NOTE | 2019-11-10 14:26 | NUR ---
Nutrition follow-up: Pt not feeling well; has been running fever; irritable Diet: ADA consistent CHO with gatorade x 2 with each meal Labs reviewed Wt: 239# Will monitor patients progress. Following.
--- NOTE | 2019-11-10 15:30 | NUR ---
PATIENT IV HARD AND HURTING PATIENT. REMOVED BY ROGE TOLENTINO DUE TO SWELLING AND PAIN.
[2019-11-10 17:51] VITALS: BP 149/101
--- NOTE | 2019-11-10 18:29 | NUR ---
PATIENT IN BED WITH NO COMPLAINTS OR SIGNS OF DISTRESS. CALL LIGHT WITHIN REACH. RECIEVED IBUPROFEN FOR TEMP EARLIER. RECIEVED COUGH MED AND PECOCET WELL.
[2019-11-10 20:00] VITALS: BP 105/60
[2019-11-11] VITALS: BP 109/57
--- NOTE | 2019-11-11 08:37 | NUR ---
PATIENT IN BED EATING BREAKFAST AT THIS TIME. NO COMPLAINTS OR SIGNS OF DISTRESS. CALL LIGHT WITHIN REACH. STATED MARY MICHAUD SAID SHE WOULD BE GOING HOME TODAY.
[2019-11-11 08:47] VITALS: BP 143/78
[2019-11-11 10:33] LABS: BASOPHILS 0.1 % (0-2); EOSINOPHILS 0 % (0-7); HEMATOCRIT 28.4 % (36.0-48.0); HEMOGLOBIN 8.9 g/dL (12-16); IMMATURE GRANULOCYTES 0.3 % (0-5); LYMPHOCYTES 6.3 % (15-50); MCHC 31.3 g/dL (31.0-37.0); MCV 86.1 fL (80.0-100.0); MEAN PLATELET VOLUME 9.4 fL (7.4-10.4); MONOCYTES 7.1 % (2-11); NEUTROPHILS 86.2 % (40-80); RDW 16.6 % (11.5-14.5); WBC 14.2 10x3/uL (4.8-10.8)
[2019-11-11 10:35] LABS: PLATELET COUNT 317 10x3/uL (130-400)
[2019-11-11 10:44] LABS: ANION GAP 10.5 mmol/L (8-16); CALCIUM 8.3 mg/dL (8.5-10.1); CARBON DIOXIDE 28.5 mmol/L (21.0-32.0); CREATININE - SERUM 1.4 mg/dL (0.6-1.3)
--- NOTE | 2019-11-11 11:24 | MORECARE ---
CASE MANAGEMENT DISCHARGE SUMMARY PATIENT: JO GARCIA UNIT: [id number] ADM DATE: 11/07/19 AGE: 59 : 62 SEX: F ROOM/BED: D.2207 AUTHOR: BRIAN CROW PHYSICIAN: REFERRING PHYSICIAN: CHELSEY MORAN MD DATE OF SERVICE: 11/11/19 Discharge Plan Patient Name: JO GARCIA Facility: [facility]:[place] : 1960 Planned Disposition: Home with Home Health Anticipated Discharge Date: Discharge Date: Expected LOS: Initial Reviewer: [email or web address] Initial Review Date: 11/07/2019 Generated: 11/11/19 12:23 pm DCPIA - Discharge Planning Initial Assessment Updated by [email or web address]: Emeli Hoskins on 11/11/19 11:24 am * Is the patient Alert and Oriented? Yes * How many steps to enter\exit or inside your home? * PCP LUISA * Pharmacy [facility] * Preadmission Environment Home Alone * ADLs Independent * Equipment Oxygen Power Chair or Electric Scooter * List name and contact numbers for known caregivers / representatives who currently or will assist patient after discharge: ANNETTE (DAUGHTER) [phone] * Verbal permission to speak to the caregivers and representatives has been obtained from the patient. N/A * Community resources currently utilized [employer] * Please name any agencies selected above. TRYING TO GET ADVANTAGE PROGRAM STARTED SHE IS TALKING TO 2 DIFFERENT COMPANIES * Additional services required to return to the preadmission environment? Yes * Can the patient safely return to the preadmission environment? Yes * Has this patient been hospitalized within the prior 30 days at any hospital? Yes Patient Name: JO GARCIA Page [id number] at 1124 All edits/amendments must be made on the electronic document DICTATION DATE: 11/11/191122 BLOOD BANK TECHNICIAN: EMIR 11/11/191122 RPT#: [id number] DC DATE: STATUS: ADM IN [facility] [address] [place] [address] END OF REPORT
--- NOTE | 2019-11-11 11:31 | MORECARE ---
CASE MANAGEMENT DISCHARGE SUMMARY PATIENT: JO GARCIA UNIT: [id number] ADM DATE: 11/07/19 AGE: 59 : 62 SEX: F ROOM/BED: D.2207 AUTHOR: MIGNONDOC PHYSICIAN: REFERRING PHYSICIAN: CHELSEY MORAN MD DATE OF SERVICE: 11/11/19 Discharge Plan Patient Name: JO GARCIA Facility: [facility]:[place] : 1960 Planned Disposition: Home with Home Health Anticipated Discharge Date: Discharge Date: Expected LOS: Initial Reviewer: [email or web address] Initial Review Date: 11/07/2019 Generated: 11/11/19 12:30 pm Comments DCP- Discharge Planning Updated by [email or web address]: Emeli Hoskins on 11/11/19 10:[address] Patient Name: JO GARCIA Admission Status: Elective Accout number: [id number] Admission Date: 11-07-2019 : 1960 Admission Diagnosis: Attending: SJ Current LOS: 4 Anticipated DC Date: Planned Disposition: Home with Home Health Primary Insurance: MEDICAID [place] Discharge Planning Comments: CM met with patient to complete initial dc planning assessment. CM educated patient on the CM role and verbal consent given by patient to complete assessment. Patient lives home by her self where she is pretty independent with her care. Her neighbor will be her front end loader driver home, Ms Roberts. She stated that she was talking to 2 different companies for some help at home. At discharge patient plans to return home and feels this is a safe discharge. CM discussed availability of home health, rehab services, and medical equipment. She has a power wheelchair and a O2 concentrator at home. She wears her O2 at night if needed. She does not have a nebulizer at home and will need one on DC. She also asked for a shower chair. She would like , [facility] IV/Kristin. [facility] also with [facility] for Nebulizer. Patient denied known discharge needs at this time. CM will continue to follow and will assist as needed with dc plans/needs. Glass Cut Off Supervisor: Emeli Hoskins DCPIA - Discharge Planning Initial Assessment Updated by [id number]: Emeli Hoskins on 11/11/19 11:24 am * Is the patient Alert and Oriented? Yes * How many steps to enter\exit or inside your home? * PCP LUISA * Pharmacy [facility] * Preadmission Environment Home Alone * ADLs Independent * Equipment Oxygen Power Chair or Electric Scooter * List name and contact numbers for known caregivers / representatives who currently or will assist patient after discharge: ANNETTE (DAUGHTER) [phone] * Verbal permission to speak to the caregivers and representatives has been obtained from the patient. N/A * Community resources currently utilized [employer] * Please name any agencies selected above. TRYING TO GET ADVANTAGE PROGRAM STARTED SHE IS TALKING TO 2 DIFFERENT COMPANIES * Additional services required to return to the preadmission environment? Yes * Can the patient safely return to the preadmission environment? Yes * Has this patient been hospitalized within the prior 30 days at any hospital? Yes Coverage Notice Reviewer: [id number] - Emeli Hoskins Notice Issued Date-Time: 11/11/2019 9:20 Notice Type: Patient Choice Letter Notice Delivered To: Patient Relationship to Patient: Frame Wirer Name: Delivery Method: HAND - Hand Delivered Katie Days: Prior Verbal Notification: Recipient Understood Notice: Yes Recipient Signature: Yes Med Rec Note Co-signed by Attending: Coverage Notice Comment: [facility] iv/kristin christal/synergy Last DP export: 11/11/19 10:24 a Patient Name: JO GARCIA Page [id number] at 1131 All edits/amendments must be made on the electronic document DICTATION DATE: 11/11/19 113 DRY PAN OPERATOR: EMIR 11/11/19 1130 RPT#: [id number] DC DATE: STATUS: ADM IN [facility] [address] [place] [address] END OF REPORT
[2019-11-11 11:47] VITALS: BP 110/55
--- NOTE | 2019-11-11 19:20 | NUR ---
PT SITTING UP IN BED WITHOUT DISTRESS, AOX4. NO IV ACCESS AT THIS TIME. O2 2L/NC. LUNG SOUNDS DIMINISHED BILAT. PRODUCTIVE COUGH WITH YELLOW SPUTUM. REQUESTING PHENERGAN AT THIS TIME, GIVEN ORDERED. DENIES OTHER NEEDS. CL IN REACH, WILL CTM
[2019-11-11 20:00] VITALS: BP 110/52
--- NOTE | 2019-11-11 21:00 | NUR ---
HS MEDS GIVEN. GAVE MOTRIN FOR PAIN 03/31. VALIUM GIVEN TO HELP PT SLEEP. DENIES FURTHER NEEDS. CL IN REACH, WILL CTM
--- NOTE | 2019-11-11 23:30 | NUR ---
PT STATES PAIN 05/01, GAVE OXY ORDERED. WILL CTM
[2019-11-12] VITALS: BP 117/69
[2019-11-12 04:00] VITALS: BP 81/58
[2019-11-12 05:06] LABS: BASOPHILS 0 % (0-2); EOSINOPHILS 0 % (0-7); HEMATOCRIT 29.8 % (36.0-48.0); HEMOGLOBIN 9.3 g/dL (12-16); IMMATURE GRANULOCYTES 0.3 % (0-5); LYMPHOCYTES 7.4 % (15-50); MCHC 31.2 g/dL (31.0-37.0); MCV 86.4 fL (80.0-100.0); MEAN PLATELET VOLUME 9.2 fL (7.4-10.4); MONOCYTES 7.7 % (2-11); NEUTROPHILS 84.6 % (40-80); RBC 3.45 10x6/uL (4.00-5.40); RDW 16.6 % (11.5-14.5)
[2019-11-12 05:16] LABS: PLATELET COUNT 406 10x3/uL (130-400)
[2019-11-12 05:19] LABS: ANION GAP 10.7 mmol/L (8-16); CALCIUM 8.7 mg/dL (8.5-10.1); CARBON DIOXIDE 28.9 mmol/L (21.0-32.0); CREATININE - SERUM 1.4 mg/dL (0.6-1.3); POTASSIUM - SERUM 4.6 mmol/L (3.5-5.1)
[2019-11-12 09:48] VITALS: BP 111/63
--- NOTE | 2019-11-12 13:21 | NUR ---
Nutrition follow-up: Diet: consistent CHO PO intake 75-100% of meals Labs reviewed Wt: 239# PO intake improved RDN following.
[2019-11-12 13:40] VITALS: BP 93/51
--- NOTE | 2019-11-12 13:47 | MORECARE ---
CASE MANAGEMENT DISCHARGE SUMMARY PATIENT: JO GARCIA UNIT: [id number] ADM DATE: 11/07/19 AGE: 59 : 62 SEX: F ROOM/BED: D.2207 AUTHOR: MIGNON,DOC PHYSICIAN: REFERRING PHYSICIAN: CHELSEY MORAN MD DATE OF SERVICE: 11/12/19 Discharge Plan Patient Name: JO GARCIA Facility: [facility]:[place] : 1960 Planned Disposition: Home with Home Health Anticipated Discharge Date: Discharge Date: Expected LOS: Initial Reviewer: [email or web address] Initial Review Date: 11/07/2019 Generated: 11/12/19 2:47 pm DCP- Discharge Planning Updated by [email or web address]: Emeli Hoskins on 11/11/19 10:[address] Patient Name: JO GARCIA Admission Status: Elective Accout number: [id number] Admission Date: 11-07-2019 : 1960 Admission Diagnosis: Attending: SJ Current LOS: 4 Anticipated DC Date: Planned Disposition: Home with Home Health Primary Insurance: MEDICAID [place] Discharge Planning Comments: CM met with patient to complete initial dc planning assessment. CM educated patient on the CM role and verbal consent given by patient to complete assessment. Patient lives home by her self where she is pretty independent with her care. Her neighbor will be her driver license reviewing officer home, Ms Roberts. She stated that she was talking to 2 different companies for some help at home. At discharge patient plans to return home and feels this is a safe discharge. CM discussed availability of home health, rehab services, and medical equipment. She has a power wheelchair and a O2 concentrator at home. She wears her O2 at night if needed. She does not have a nebulizer at home and will need one on DC. She also asked for a shower chair. She would like , [facility] IV/Kristin. [facility] also with [facility] for Nebulizer. Patient denied known discharge needs at this time. CM will continue to follow and will assist as needed with dc plans/needs. Pharmacy Stock Clerk: Emeli Hoskins DCPIA - Discharge Planning Initial Assessment Updated by [email or web address]: Emeli Hoskins on 11/11/19 11:24 am * Is the patient Alert and Oriented? Yes * How many steps to enter\exit or inside your home? * PCP LUISA * [facility] * Preadmission Environment Home Alone * ADLs Independent * Equipment Oxygen Power Chair or Electric Scooter * List name and contact numbers for known caregivers / representatives who currently or will assist patient after discharge: ANNETTE (DAUGHTER) [phone] * Verbal permission to speak to the caregivers and representatives has been obtained from the patient. N/A * Community resources currently utilized [employer] Program * Please name any agencies selected above. TRYING TO GET ADVANTAGE PROGRAM STARTED SHE IS TALKING TO 2 DIFFERENT COMPANIES * Additional services required to return to the preadmission environment? Yes * Can the patient safely return to the preadmission environment? Yes * Has this patient been hospitalized within the prior 30 days at any hospital? Yes External Providers External Provider: [facility] Next Contact Date: Service Request Date: Service Type: Resolution: Reviewer: Comments: Coverage Notice Reviewer: [id number] - Emeli Hoskins Notice Issued Date-Time: 11/11/2019 9:20 Notice Type: Patient Choice Letter Notice Delivered To: Patient Relationship to Patient: Weight Shifter Name: Delivery Method: HAND - Hand Delivered Katie Days: Prior Verbal Notification: Recipient Understood Notice: Yes Recipient Signature: Yes Med Rec Note Co-signed by Attending: Coverage Notice Comment: [facility] iv/kristin crow/suze Last DP export: 11/11/19 10:31 a Patient Name: JO GARCIA Page 11407 at 1347 All edits/amendments must be made on the electronic document DICTATION DATE: 11/12/19 1347 PERSONAL COMPUTER NETWORK ENGINEER: EMIR 11/12/19 1347 RPT#: [id number] DC DATE: STATUS: ADM IN [facility] [address] [place] [address] END OF REPORT
--- NOTE | 2019-11-12 13:55 | MORECARE ---
CASE MANAGEMENT DISCHARGE SUMMARY PATIENT: JO GARCIA UNIT: [id number] ADM DATE: 11/07/19 AGE: 59 : 62 SEX: F ROOM/BED: D.2207 AUTHOR: MIGNONDOC PHYSICIAN: REFERRING PHYSICIAN: CHELSEY MORAN MD DATE OF SERVICE: 11/12/19 Discharge Plan Patient Name: JO GARCIA Facility: [facility]:[place] : 1960 Planned Disposition: Home with Home Health Anticipated Discharge Date: Discharge Date: Expected LOS: Initial Reviewer: [email or web address] Initial Review Date: 11/07/2019 Generated: 11/12/19 2:54 pm Comments DCP- Discharge Planning Updated by [email or web address]: Emeli Hoskins on 11/12/19 12:[address] I HAVE SENT CLINICAL AND REFERRAL TO [facility] AND THEY HAV ACCEPTED THE PATIENT WHEN SHE IS DISCHARGED THEY WILL START [facility]. LAURENCE WITH [facility] HAS ALSO SPOKEN WITH THE PATIENT DCP- Discharge Planning Updated by [id number]: Emeli Hoskins on 11/11/19 10:[address] Patient Name: JO GARCIA Admission Status: Elective Accout number: [id number] Admission Date: 11-07-2019 : 1960 Admission Diagnosis: Attending: SJ Current LOS: 4 Anticipated DC Date: Planned Disposition: Home with Home Health Primary Insurance: MEDICAID [place] Discharge Planning Comments: CM met with patient to complete initial dc planning assessment. CM educated patient on the CM role and verbal consent given by patient to complete assessment. Patient lives home by her self where she is pretty independent with her care. Her neighbor will be her ross carrier driver home, Ms Roberts. She stated that she was talking to 2 different companies for some help at home. At discharge patient plans to return home and feels this is a safe discharge. CM discussed availability of home health, rehab services, and medical equipment. She has a power wheelchair and a O2 concentrator at home. She wears her O2 at night if needed. She does not have a nebulizer at home and will need one on DC. She also asked for a shower chair. She would like , [facility]. [facility] also with [facility] for Nebulizer. Patient denied known discharge needs at this time. CM will continue to follow and will assist as needed with dc plans/needs. County Records Management Officer: Emeli Hoskins DCPIA - Discharge Planning Initial Assessment Updated by [email or web address]: Emeli Hoskins on 11/11/19 11:24 am * Is the patient Alert and Oriented? Yes * How many steps to enter\exit or inside your home? * PCP HURST * Pharmacy [facility] * Preadmission Environment Home Alone * ADLs Independent * Equipment Oxygen Power Chair or Electric Scooter * List name and contact numbers for known caregivers / representatives who currently or will assist patient after discharge: ANNETTE (DAUGHTER) [phone] * Verbal permission to speak to the caregivers and representatives has been obtained from the patient. N/A * Community resources currently utilized [employer] [facility] * Please name any agencies selected above. TRYING TO GET ADVANTAGE PROGRAM STARTED SHE IS TALKING TO 2 DIFFERENT COMPANIES * Additional services required to return to the preadmission environment? Yes * Can the patient safely return to the preadmission environment? Yes * Has this patient been hospitalized within the prior 30 days at any hospital? Yes Coverage Notice Reviewer: [id number] - Emeli Hoskins Notice Issued Date-Time: 11/11/2019 9:20 Notice Type: Patient Choice Letter Notice Delivered To: Patient Relationship to Patient: Photo Colorer Name: Delivery Method: HAND - Hand Delivered Katie Days: Prior Verbal Notification: Recipient Understood Notice: Yes Recipient Signature: Yes Med Rec Note Co-signed by Attending: Coverage Notice Comment: [facility]ristin [facility] Last DP export: 11/12/19 12:47 p Patient Name: JO GARCIA Page 20743 at 1355 All edits/amendments must be made on the electronic document DICTATION DATE: 11/12/19 1353 RODENT CONTROL WORKER: EMIR 11/12/19 1354 RPT#: [id number] DC DATE: STATUS: ADM IN [facility] [address] [place] [address] END OF REPORT
[2019-11-12 16:28] VITALS: BP 116/62
--- NOTE | 2019-11-12 18:22 | NUR ---
PATIENT IN BED WITH COMPLAINTS OR COUGH. JUST GAVE COUGH SYRUP AT THREE. PATIENT STATED MAYBE SHE NEEDED A BREATHING TREATMENT. NOTIFIED RT. PATIENT CALL LIGHT WITHIN REACH.
[2019-11-13 04:00] VITALS: BP 126/63
[2019-11-13 08:28] VITALS: BP 104/57
--- NOTE | 2019-11-13 09:33 | NUR ---
MEDICATED VAILUM AT THIS TIME FOR C/O ANXIETY. C/L IN REACH AT BEDSIDE.
[2019-11-13 14:07] VITALS: BP 127/82
--- NOTE | 2019-11-13 14:42 | NUR ---
I have reviewed this patient and I concur with the Shift Assessment completed by the Licensed Practical Nurse today this shift.
[2019-11-13 16:19] VITALS: BP 121/65
[2019-11-13] MEDS ORDERED: STERAPRED 5MG 65 M1 PO (19:11)
--- NOTE | 2019-11-13 19:58 | NUR ---
DISCHARGE INSTRUCTIONS GIVEN TO PT AND SHE VERBALIZED UNDERSTANDING. PAPERS SIGNED AND COPIES GIVEN TO PT. NO IV ACCESS. PT TAKEN TO CAR VIA W/C WITH FAMILY. PT STABLE. NO DISTRESS.
--- NOTE | 2019-11-14 15:01 | MORECARE ---
CASE MANAGEMENT DISCHARGE SUMMARY PATIENT: JO GARCIA UNIT: [id number] ADM DATE: 11/07/19 AGE: 59 : 62 SEX: F ROOM/BED: D.2207 AUTHOR: MIGNON,DOC PHYSICIAN: REFERRING PHYSICIAN: CHELSEY MORAN MD DATE OF SERVICE: 11/14/19 Discharge Plan Patient Name: JO GARCIA Facility: [facility]:[place] : 1960 Planned Disposition: Home with Home Health Anticipated Discharge Date: Discharge Date: 11/13/2019 Expected LOS: Initial Reviewer: [email or web address] Initial Review Date: 11/07/2019 Generated: 11/14/19 4:00 pm Comments DCP- Discharge Planning Updated by [id number]: Emeli Hoskins on 11/12/19 12:[address] I HAVE SENT CLINICAL AND REFERRAL TO [facility] AND THEY HAV ACCEPTED THE PATIENT WHEN SHE IS DISCHARGED THEY WILL START CARE. LAURENCE WITH [facility] HAS ALSO SPOKEN WITH THE PATIENT DCP- Discharge Planning Updated by [id number]: Emeli Hoskins on 11/11/19 10:[address] Patient Name: OJ GARCIA Admission Status: Elective Accout number: [id number] Admission Date: 11-07-2019 : 1960 Admission Diagnosis: Attending: SJ Current LOS: 4 Anticipated DC Date: Planned Disposition: Home with Home Health Primary Insurance: MEDICAID [place] Discharge Planning Comments: CM met with patient to complete initial dc planning assessment. CM educated patient on the CM role and verbal consent given by patient to complete assessment. Patient lives home by her self where she is pretty independent with her care. Her neighbor will be her funeral limousine driver home, Ms Roberts. She stated that she was talking to 2 different companies for some help at home. At discharge patient plans to return home and feels this is a safe discharge. CM discussed availability of home health, rehab services, and medical equipment. She has a power wheelchair and a O2 concentrator at home. She wears her O2 at night if needed. She does not have a nebulizer at home and will need one on DC. She also asked for a shower chair. She would like [place] with [facility]. [place] also with [facility] for Nebulizer. Patient denied known discharge needs at this time. CM will continue to follow and will assist as needed with dc plans/needs. Building Construction Foreman: Emeli Hoskins DCPIA - Discharge Planning Initial Assessment Updated by [id number]: Emeli Hoskins on 11/11/19 11:24 am * Is the patient Alert and Oriented? Yes * How many steps to enter\exit or inside your home? * PCP [facility] * Pharmacy [facility] * Preadmission Environment Home Alone * ADLs Independent * Equipment Oxygen Power Chair or Electric Scooter * List name and contact numbers for known caregivers / representatives who currently or will assist patient after discharge: ANNETTE (DAUGHTER) [phone] * Verbal permission to speak to the caregivers and representatives has been obtained from the patient. N/A * Community resources currently utilized [employer] Program * Please name any agencies selected above. TRYING TO GET ADVANTAGE PROGRAM STARTED SHE IS TALKING TO 2 DIFFERENT COMPANIES * Additional services required to return to the preadmission environment? Yes * Can the patient safely return to the preadmission environment? Yes * Has this patient been hospitalized within the prior 30 days at any hospital? Yes Coverage Notice Reviewer: [id number] - Emeli Hoskins Notice Issued Date-Time: 11/11/2019 9:20 Notice Type: Patient Choice Letter Notice Delivered To: Patient Relationship to Patient: Body Shop Supervisor Name: Delivery Method: HAND - Hand Delivered Katie Days: Prior Verbal Notification: Recipient Understood Notice: Yes Recipient Signature: Yes Med Rec Note Co-signed by Attending: Coverage Notice Comment: [facility] Last DP export: 11/12/19 12:55 p Patient Name: JO GARCIA Page [id number] at 1501 All edits/amendments must be made on the electronic document DICTATION DATE: 11/14/19 1500 TSA SCREENER: EMIR 11/14/19 1500 RPT#: [id number] DC DATE:11/13/19 STATUS: DIS IN [facility] [address] [place] [address] END OF REPORT
== END 2019-11-13 20:00 | disposition home health service (06) | DRG 153 ==
LOC: D.ER 09:49 → D.MS 13:31 → D.M2 13:31 → D.MS 14:18
PROVIDERS: Emergency Medicine; Legal Medicine; ADMIT Emergency Medicine; ATTEND Emergency Medicine
DX: J11.1 Influenza due to unidentified influenza virus with other respiratory manifestations (principal); F11.20 Opioid dependence, uncomplicated; J44.9 Chronic obstructive pulmonary disease, unspecified; G89.29 Other chronic pain; D64.9 Anemia, unspecified; R74.8 Abnormal levels of other serum enzymes; I10 Essential (primary) hypertension

== ENCOUNTER 2019-11-25 15:54 | Inpatient (IN) | payer MEDICAID ==
[~2019-11-25] VITALS: Ht 152.4 cm; Wt 151.0 kg
[~2019-11-25 15:54] MED LIST changes: +PERCOCET 7.5/321 TAB; +STERAPRED 5MG 65 M1 PO; +TAMIFLU75 MG PO
--- NOTE | 2019-11-25 16:45 | NUR ---
PT UP TO BEDSIDE COMMODE. URINE SAMPLE COLLECTED.
--- NOTE | 2019-11-25 16:51 | NUR ---
GRAIN ORIGINATION SPECIALIST AT BEDSIDE.
[2019-11-25 17:28] LABS: UDS - AMPHET NEGATIVE QUAL (NEGATIVE); UDS - BARB NEGATIVE QUAL (NEGATIVE); UDS - BENZO POSITIVE QUAL (NEGATIVE); UDS - COCAINE NEGATIVE QUAL (NEGATIVE); UDS - OPIATE POSITIVE QUAL (NEGATIVE); UDS - PCP NEGATIVE QUAL (NEGATIVE); UDS - THC NEGATIVE QUAL (NEGATIVE)
[2019-11-25 17:31] LABS: BILIRUBIN NEGATIVE (NEGATIVE); GLUCOSE NEGATIVE (NEGATIVE); KETONE NEGATIVE (NEGATIVE); NITRITE NEGATIVE (NEGATIVE); SPECIFIC GRAVITY 1.005 (1.005-1.020); UROBILINOGEN NORMAL (NORMAL)
[2019-11-25 17:39] LABS: BASOPHILS 0.2 % (0-2); EOSINOPHILS 1.1 % (0-7); HEMATOCRIT 31.5 % (36.0-48.0); HEMOGLOBIN 9.6 g/dL (12-16); IMMATURE GRANULOCYTES 0.2 % (0-5); LYMPHOCYTES 27.8 % (15-50); MCH 26.9 pg (26.0-34.0); MCHC 30.5 g/dL (31.0-37.0); MCV 88.2 fL (80.0-100.0); MEAN PLATELET VOLUME 8.8 fL (7.4-10.4); MONOCYTES 8.6 % (2-11); NEUTROPHILS 62.1 % (40-80); PLATELET COUNT 437 10x3/uL (130-400); RBC 3.57 10x6/uL (4.00-5.40); RDW 16.8 % (11.5-14.5); WBC 10.2 10x3/uL (4.8-10.8)
[2019-11-25 18:04] LABS: CALC OSMOLALITY 280 mosm/kg (275-300); CALCIUM 8.6 mg/dL (8.5-10.1); CARBON DIOXIDE 31.7 mmol/L (21.0-32.0); CHLORIDE - SERUM 103 mmol/L (98-107); CREATININE - SERUM 1.2 mg/dL (0.6-1.3); POTASSIUM - SERUM 3.7 mmol/L (3.5-5.1); SODIUM 140 mmol/L (136-145); UREA NITROGEN 11 mg/dL (7-18); eGFR NON AFRICAN AMERICAN 49 mL/min (90-120)
[2019-11-25 18:05] LABS: GLUCOSE 152 mg/dL (74-106)
[2019-11-25 18:13] LABS: ALBUMIN 2.7 g/dL (3.4-5.0); ALKALINE PHOSPHATASE 131 U/L (30-120); ALT (SGPT) 22 U/L (10-68); BILIRUBIN - TOTAL 0.17 mg/dL (0.2-1.3); LIPASE 99 U/L (73-393); MAGNESIUM - SERUM 1.9 mg/dL (1.8-2.4); PRO BNP 17 pg/mL (0-125); PROTEIN - SERUM 6.8 g/dL (6.4-8.2); THYROID STIMULATING HORMONE 0.51 uIU/mL (0.36-3.74); TROPONIN-I < 0.017 ng/mL (0.000-0.060)
--- NOTE | 2019-11-25 18:25 | NUR ---
PT TO CT VIA STRETCHER WITH METAL CHECKER.
[2019-11-25 20:00] VITALS: BP 101/53
--- NOTE | 2019-11-25 23:01 | NUR ---
PATIENT C/O ABDOMINAL PAIN. PAGED JASWANT HERNANDEZ AND WAS INSTRUCTED TO RESTART HER HOME PAIN MEDICATIONS.
--- NOTE | 2019-11-25 23:30 | NUR ---
ADMINISTERED PRN PAIN MED PER ORDERS.
[2019-11-26] VITALS: BP 113/75
--- NOTE | 2019-11-26 03:42 | NUR ---
I have reviewed this patient and I concur with the Shift Assessment completed by the Licensed Practical Nurse today this shift.
[2019-11-26 03:43] VITALS: Ht 152.4 cm; Wt 151.0 kg
--- NOTE | 2019-11-26 04:05 | NUR ---
ASSISTED PATIENT TO USE THE BEDPAN. PATIENT STATED SHE WAS UNABLE TO WALK TO THE BATHROOM. ASSISTED PATIENT WITH PERICARE.
[2019-11-26 09:55] VITALS: BP 90/58
--- NOTE | 2019-11-26 19:15 | NUR ---
REPORT RECEIVED. BEDSIDE SHIFT REPORT COMPLETE. PT X1 ASST TO BSC. GAIT SLOW AND UNSTEADY. NO S/SX OF DISTRESS OBSERVED AT THIS TIME. DENIES FURTHER NEEDS. CALL LIGHT IN REACH. WILL CTM.
[2019-11-26 20:00] VITALS: BP 108/60
[2019-11-27] VITALS: BP 109/65
[2019-11-27 04:00] VITALS: BP 111/69
[2019-11-27 05:11] LABS: BASOPHILS 0.3 % (0-2); EOSINOPHILS 2.1 % (0-7); HEMATOCRIT 35.1 % (36.0-48.0); HEMOGLOBIN 10.6 g/dL (12-16); IMMATURE GRANULOCYTES 0.1 % (0-5); MCHC 30.2 g/dL (31.0-37.0); MCV 89.3 fL (80.0-100.0); MONOCYTES 8.9 % (2-11); NEUTROPHILS 50.6 % (40-80); RBC 3.93 10x6/uL (4.00-5.40); RDW 16.9 % (11.5-14.5)
[2019-11-27 05:16] LABS: PLATELET COUNT 314 10x3/uL (130-400); WBC 7.1 10x3/uL (4.8-10.8)
[2019-11-27 05:31] LABS: ANION GAP 8.1 mmol/L (8-16); CALCIUM 8.4 mg/dL (8.5-10.1); CARBON DIOXIDE 30.8 mmol/L (21.0-32.0); CREATININE - SERUM 1.3 mg/dL (0.6-1.3); POTASSIUM - SERUM 3.9 mmol/L (3.5-5.1)
[2019-11-27 09:10] VITALS: BP 105/47
[2019-11-27 12:00] VITALS: BP 86/44
[2019-11-27 16:00] VITALS: BP 82/49
--- NOTE | 2019-11-27 19:05 | NUR ---
REPROT RECEIVED. BEDSIDE SHIFT REPORT COMPLETE. PT RESTING IN BED RR EVEN AND UNLABORED. NO C/O OR CONCERNS AT THIS TIME. NO S/SX OF DISTRESS OBSERVED. FAMILY AT BEDSIDE. CALL LIGHT IN REACH WILL CTM.
[2019-11-27 20:00] VITALS: BP 91/53
[2019-11-28 01:35] VITALS: BP 96/51
[2019-11-28 05:11] VITALS: BP 82/49
[2019-11-28 05:23] LABS: BASOPHILS 0.1 % (0-2); EOSINOPHILS 1.4 % (0-7); HEMATOCRIT 36.2 % (36.0-48.0); HEMOGLOBIN 10.9 g/dL (12-16); IMMATURE GRANULOCYTES 0.3 % (0-5); LYMPHOCYTES 31.7 % (15-50); MCH 26.8 pg (26.0-34.0); MCHC 30.1 g/dL (31.0-37.0); MCV 89.2 fL (80.0-100.0); MEAN PLATELET VOLUME 9.1 fL (7.4-10.4); MONOCYTES 8.1 % (2-11); NEUTROPHILS 58.4 % (40-80); PLATELET COUNT 311 10x3/uL (130-400); RBC 4.06 10x6/uL (4.00-5.40); RDW 16.8 % (11.5-14.5); WBC 8.6 10x3/uL (4.8-10.8)
[2019-11-28 05:45] LABS: ANION GAP 10.7 mmol/L (8-16); CALCIUM 8.2 mg/dL (8.5-10.1); CARBON DIOXIDE 29.1 mmol/L (21.0-32.0); CREATININE - SERUM 1.3 mg/dL (0.6-1.3); POTASSIUM - SERUM 3.8 mmol/L (3.5-5.1)
[2019-11-28 09:14] VITALS: BP 106/65
--- NOTE | 2019-11-28 09:45 | NUR ---
PT AWAKE AND ORIENTED, LYING IN BED. REQUESTED TO TRANSFER HERSELF TO TOILET. WATCHED, SHE IS TERRIFYING TO SEE TRANSFER BUT DID SO WITHOUT ASSISTANCE (STANDBY). BASICALLY BENDS ASSISTED OVER DURING ALL MOVEMENTS. I/V INFILTRATED, TOOK OUT TIP INTACT WILL REPLACE. CL NO COMPLAINTS OR CONCERNS AT THIS TIME. NO FAMILY AT BEDSIDE. CL INR EACH,S RX2.
[2019-11-28 12:00] VITALS: BP 93/48
--- NOTE | 2019-11-28 16:35 | NUR ---
PT AWAKE AND ORIENTED, LYING IN BED. HAVING DIFFICULTY RESITING PTS I/V. MULTIPLE NURSES/STICKS BUT PT IS REQUESTING A BREAK. WILL TRY AGAIN WHEN PT RELAXES. CL INR EACH, SRX2, NO FAMILY AT BEDSID.E
[2019-11-28 16:42] VITALS: BP 130/66
--- NOTE | 2019-11-28 17:00 | NUR ---
I have reviewed this patient and I concur with the Shift Assessment completed by the Licensed Practical Nurse today this shift.
--- NOTE | 2019-11-28 19:37 | NUR ---
SEVERAL NEEDS SEEN TOO AND PT ASSISTED UP TO BSC BED LOW AND LOCKED AND CALL LIGHT IS WITH PT CHECKED FOR IV PLACEMENT ALSO AND DID NOT SEE A VEIN TO ACCESS
[2019-11-28 20:00] VITALS: BP 88/49
[2019-11-29] VITALS: BP 108/59
[2019-11-29 05:04] VITALS: BP 114/66
[2019-11-29 05:17] LABS: BASOPHILS 0.3 % (0-2); EOSINOPHILS 2.6 % (0-7); HEMATOCRIT 33.3 % (36.0-48.0); HEMOGLOBIN 10.2 g/dL (12-16); IMMATURE GRANULOCYTES 0.2 % (0-5); LYMPHOCYTES 44.9 % (15-50); MCH 27.1 pg (26.0-34.0); MCHC 30.6 g/dL (31.0-37.0); MCV 88.3 fL (80.0-100.0); MEAN PLATELET VOLUME 8.9 fL (7.4-10.4); MONOCYTES 9.6 % (2-11); NEUTROPHILS 42.4 % (40-80); PLATELET COUNT 294 10x3/uL (130-400); RBC 3.77 10x6/uL (4.00-5.40); RDW 16.7 % (11.5-14.5)
[2019-11-29 05:23] LABS: WBC 6.2 10x3/uL (4.8-10.8)
[2019-11-29 08:13] LABS: ANION GAP 8.3 mmol/L (8-16); CALCIUM 8.1 mg/dL (8.5-10.1); CARBON DIOXIDE 30.5 mmol/L (21.0-32.0); CREATININE - SERUM 1.1 mg/dL (0.6-1.3); POTASSIUM - SERUM 3.8 mmol/L (3.5-5.1)
[2019-11-29 08:34] VITALS: BP 118/58
[2019-11-29 12:00] VITALS: BP 94/43
--- NOTE | 2019-11-29 12:16 | NUR ---
PT AWAKE AND ORIENTED, REQUESTED PAIN MEDS AND ANXIETY MEDICATION THIS MORNING. LYING IN BED CURRENTLY, PREVIOUSLY ASSISTED TO BEDSIDE COMMODE AND BACK. SHE WALKED WITH PT AROUND THE FLOOR ONCE. NO COMPLAINTS OR CONCERNS AT THIS TIME. CL INR EACH, SRX2, NO FAMILY AT BEDSIDE.
--- NOTE | 2019-11-29 14:23 | NUR ---
I have reviewed this patient and I concur with the Shift Assessment completed by the Licensed Practical Nurse today this shift.
[2019-11-29 15:45] VITALS: BP 101/64
--- NOTE | 2019-11-29 19:35 | NUR ---
AWAKE AND ALERT AT THIS TIME NEEDS SEEN TO BED LOW AND LOCKED IV TO RT WRIST AT 50 I AILYN CHECK ORDER PT WITH CALL LIGHT
[2019-11-29 20:48] VITALS: BP 97/54
[2019-11-30 00:12] VITALS: BP 103/57
[2019-11-30 03:45] VITALS: BP 105/65
--- NOTE | 2019-11-30 07:00 | NUR ---
RECEIVED REPORT. ASSUMED CARE OF PATIENT. PATIENT RESTING IN BED WITH EYES CLOSED. EASILY AROUSED. RESP EVEN AND UNLABORED. CALL LIGHT WITHIN REACH. NO DISTRESS.
--- NOTE | 2019-11-30 09:17 | NUR ---
MEDICATED WITH VALIUM FOR SPASMS AND ANXIETY. PATIENT VERY UPSET THAT THE PRACTITIONER CAME TO TO SEE HER THIS AM AND SUGGESTED SHE GO TO LTC FACILITY. EXPLAINED TO THE PATIENT THAT LTC FACILITIES CAN PROVIDE THERAPY TO HELP HER GET STRONGER BEFORE GOING HOME AND BECOMING MORE WEAK. PATIENT VERBALIZED UNDERSTANDING BUT IS STILL UPSET FOR POSSIBLE DISCHARGE WHEN SHE STATES SHE IS THE SAME WHEN SHE CAME IN, NO IMPROVEMENT IN HER CONDITION. PATIENT IN NO DISTRESS.
[2019-11-30 09:31] VITALS: BP 135/63
--- NOTE | 2019-11-30 11:24 | NUR ---
CASE MANAGEMENT CONSULT PLACED PER PHONE ORDERS RECEIVED FROM JASWANT NEVAREZ.
--- NOTE | 2019-11-30 12:12 | NUR ---
MEDICATED FOR NAUSEA AT THIS TIME. NO DISTRESS.
--- NOTE | 2019-11-30 13:27 | NUR ---
PATIENT ICT SALES ASSISTANT LIGHT REQUESTING HER IV BE RECONNECTED. PATIENT DISCONNECTING HERSELF FROM IV FLUIDS TO GO TO THE RESTROOM. IV CLEANSED AND RECONNECTED. PATIENT ASKED TO NO DISCONNECT HERSELF FROM HER IV.
[2019-11-30 13:43] VITALS: BP 118/65
--- NOTE | 2019-11-30 14:35 | NUR ---
MEDICATED FOR PAIN AT THIS TIME. NO DISTRESS.
[2019-11-30 17:04] VITALS: BP 111/61
--- NOTE | 2019-11-30 19:33 | NUR ---
PT UP BEAT WITH VISITOR IN THE ROOM BED LOW AND LOCKED CALL LIGHTY WITH PT DENIES NEEDS AT THIS TIME
[2019-11-30 20:39] VITALS: BP 121/67
[2019-12-01] VITALS: BP 112/62
--- NOTE | 2019-12-01 01:40 | NUR ---
I have reviewed this patient and I concur with the Shift Assessment completed by the Licensed Practical Nurse today this shift.
--- NOTE | 2019-12-01 03:04 | NUR ---
PT CO IV PAIN AND EDEMA I STOPPED FLUIDS FOR NOW IV FLUSHES WELL
[2019-12-01 05:13] VITALS: BP 128/65
--- NOTE | 2019-12-01 08:00 | NUR ---
AM ROUNDS COMPLETED. INTRODUCED MYSELF TO PT PRIMARY RN FOR TODAYS SHIFT. PS IS A&O SITTING UP IN BED RESTING QUIETLY READY FOR BREAKFAST. PT STATES SHE IS WANTING TO BE DISCHARGED HOME AND THEN GO TO THERAPY HOWEVER WILL HAVE TO DISCUSS WITH PRIMARY BECAUSE SHE IS VERY WEAK. PT DEMANDING TO HAVE HER R.WRIST PIV REMOVED HER HAND IS SWOLLEN AND SHE STATES ITS PAINFUL. D/C WITH CATHETER TIP FULLY INTACT AND WILL LEAVE OUT UNLESS NEEDED. PT VOICED THANKS. NO IMMEDIATE NEEDS AT THIS TIME. CL IN REACH, BED IN LOWEST, SIDE RAILS X2. WILL CTM.
[2019-12-01 09:00] VITALS: BP 140/72; BP 98/57
--- NOTE | 2019-12-01 10:23 | NUR ---
PT LYING DOWN IN BED RESTING QUIETLY RR NONLABORED ON RA. PT WAS REQUESTING PRN PHENERGAN ALONG WITH HER PERCOCET AND VALIUM BUT WAS NOT NAUSEATED, JUST WANTED TO SLEEP. WILL HOLD OFF FOR NOW ITS A LOT OF SEDATIVES TO HAVE ALL TOGETHER AND CONTINUE TO MONITER FOR NAUSEA AND TRY NONPHARMALOGIC INTERVENTIONS FIRST.
[2019-12-01 12:00] VITALS: BP 140/70
--- NOTE | 2019-12-01 13:18 | NUR ---
PT COUGHING UP THICK YELLOW SPUTUM AND REQUESTING PRN BREATHING TREATMENT. I PAGED RESPIRATORY AND SPOKE TO LELAND SHE WILL BE BY SHORTLY. NO CURRENT NEEDS.
--- NOTE | 2019-12-01 16:56 | MORECARE ---
CASE MANAGEMENT DISCHARGE SUMMARY PATIENT: JO GARCIA UNIT: [id number] ADM DATE: 11/26/19 AGE: 59 : 62 SEX: F ROOM/BED: D.2 AUTHOR: BRIAN CROW PHYSICIAN: REFERRING PHYSICIAN: CHELSEY MORAN MD DATE OF SERVICE: 12/01/19 Discharge Plan Patient Name: JO GARCIA Facility: [facility]:[place] : 1960 Planned Disposition: Home with Home Health Anticipated Discharge Date: 12/01/19 Discharge Date: Expected LOS: 5 Initial Reviewer: [email or web address] Initial Review Date: 12/01/2019 Generated: 12/01/19 5:55 pm DCPIA - Discharge Planning Initial Assessment Updated by [email or web address]: Enrique Garcia on 12/01/19 4:53 pm * Is the patient Alert and Oriented? Yes * How many steps to enter\exit or inside your home? NONE * PCP DR. MORAN * Pharmacy [facility] * Preadmission Environment Home Alone * ADLs Independent * Equipment Oxygen Power Chair or Electric Scooter * Other Equipment OXYGEN AT NIGHT, UNKNOWN PROVIDER POWER CHAIR * List name and contact numbers for known caregivers / representatives who currently or will assist patient after discharge: SIMON BRYANT, * Verbal permission to speak to the caregivers and representatives has been obtained from the patient. N/A * Community resources currently utilized Home Health * Please name any agencies selected above. [facility] * Additional services required to return to the preadmission environment? No * Can the patient safely return to the preadmission environment? Yes * Has this patient been hospitalized within the prior 30 days at any hospital? Yes Patient Name: JO GARCIA Page [id number] at 1656 All edits/amendments must be made on the electronic document DICTATION DATE: 12/01/191654 SUPERVISOR MAILS: EMIR 12/01/191654 RPT#: [id number] DC DATE: STATUS: ADM IN [facility] [address] [place] [address] END OF REPORT
--- NOTE | 2019-12-01 17:13 | MORECARE ---
CASE MANAGEMENT DISCHARGE SUMMARY PATIENT: JO GARCIA UNIT: [id number] ADM DATE: 11/26/19 AGE: 59 : 62 SEX: F ROOM/BED: D.0723 AUTHOR: MIGNON,DOC PHYSICIAN: REFERRING PHYSICIAN: CHELSEY MORAN MD DATE OF SERVICE: 12/01/19 Discharge Plan Patient Name: JO GARCIA Facility: [facility]:[place] : 1960 Planned Disposition: Home with Home Health Anticipated Discharge Date: 12/01/19 Discharge Date: Expected LOS: 5 Initial Reviewer: [email or web address] Initial Review Date: 12/01/2019 Generated: 12/01/19 6:13 pm Comments DCP- Discharge Planning Updated by [email or web address]: Enrique Garcia on 12/01/19 4:[address] Patient Name: JO GARCIA Admission Status: ER Accout number: [id number] Admission Date: 11-26-2019 : 1960 Admission Diagnosis: Attending: SJ Current LOS: 5 Anticipated DC Date: 12-01-2019 Planned Disposition: Home with Home Health Primary Insurance: MEDICAID [place] PLANNED EXTERNAL PROVIDER: [facility] Discharge Planning Comments: CM RECEIVED ORDER FOR ALF CARE PLACEMENT OR REHAB PLACEMENT. CM MET WITH PT IN ROOM TO DISCUSS DISCHARGE PLANNING AND NEEDS. PT REPORTS LIVING AT HOME INDEPENDENTLY AND ALONE. PT HAS POWER WHEELCHAIR AND HOME OXYGEN FROM UNKNOWN PROVIDER. PT HAS HOME HEALTH WITH [facility]. CM DISCUSSED AVAILABILITY OF HOME HEALTH, REHAB SERVICES AND MEDICAL EQUIPMENT. PT REFUSED PLACEMENT AND REPORTS SHE CAN GO HOME AND GET THERAPY AT HOME OR OUTPATIENT AT [facility]. PT WOULD RATHER HAVE HOME HEALTH THERAPY, REPORTS SHE WILL NEED MEDICAID TRANSPORTATION CALLED TO PICK HER UP FOR DISCHARGE HOME. CM CALLED [facility], , SPOKE TO NETTIE AND PROVIDED REFERRAL INFORMATION, FAXED REFERRAL TO [facility] AT [phone]. PT ON SCHEDULE FOR RESUMPTION OF HOME HEALTH ON FRIDAY. CM NOTIFIED JASWANT MALONE OF DISCHARGE ARRANGEMENTS. PT WILL NEED MEDICAID TRANSPORATION ARRANGE FOR DISCHARGE HOME, . Machine I Trimmer: Enrique Garcia DCPIA - Discharge Planning Initial Assessment Updated by [id number]: Enrique Garcia on 12/01/19 4:53 pm * Is the patient Alert and Oriented? Yes * How many steps to enter\exit or inside your home? NONE * PCP DR. MORAN * Pharmacy [facility] * Preadmission Environment Home Alone * ADLs Independent * Equipment Oxygen Power Chair or Electric Scooter * Other Equipment OXYGEN AT NIGHT, UNKNOWN PROVIDER POWER CHAIR * List name and contact numbers for known caregivers / representatives who currently or will assist patient after discharge: SIMON BRYANT, * Verbal permission to speak to the caregivers and representatives has been obtained from the patient. N/A * Community resources currently utilized Home Health * Please name any agencies selected above. [facility] * Additional services required to return to the preadmission environment? No * Can the patient safely return to the preadmission environment? Yes * Has this patient been hospitalized within the prior 30 days at any hospital? Yes External Providers External Provider: [facility] Next Contact Date: 12/01/2019 Service Request Date: Service Type: Resolution: Reviewer: Comments: Coverage Notice Reviewer: [id number] - Enrique Garcia Notice Issued Date-Time: 12/01/2019 9:55 Notice Type: Patient Choice Letter Notice Delivered To: Patient Relationship to Patient: Gut Carrier Name: Delivery Method: HAND - Hand Delivered Katie Days: Prior Verbal Notification: Recipient Understood Notice: Yes Recipient Signature: Yes Med Rec Note Co-signed by Attending: Coverage Notice Comment: [facility] OP [facility]ERAPY AT [facility] DP export: 12/01/19 3:56 p Patient Name: JO GARCIA Page [id number] at 1713 All edits/amendments must be made on the electronic document DICTATION DATE: 12/01/191712 BELT LACER: EMIR 12/01/191712 RPT#: [id number] DC DATE: STATUS: ADM IN [facility] [address] [place] [address] END OF REPORT
--- NOTE | 2019-12-01 19:15 | NUR ---
REPORT RECEIVED, WILL CONTINUE POC. PATIENT IS AAOX4, LYING IN SEMI-FOWLERS POSITION. NO S/S OF DISTRESS OBSERVED, RR EVEN AND UNLABORED ON ROOM AIR. PATIENT REFUSED PIV ACCESS. PATIENT DENIES NEEDS AT THIS TIME. CL IN REACH, BED LOCKED AND LOWERED. WILL CTM.
[2019-12-01 20:00] VITALS: BP 109/64
--- NOTE | 2019-12-01 21:30 | NUR ---
PT C/O OF NAUSEA, PAIN, AND REQUESTED VALIUM. PRN PERCOCET, PHENERGAN, VALIUM ADMINISTERED WITH NIGHT TIME MEDS PER ORDERS.
--- NOTE | 2019-12-02 00:26 | NUR ---
PT C/O OF COUGH AND IS REQUESTING BREATHING TX. RT CALLED.
--- NOTE | 2019-12-02 03:38 | NUR ---
I have reviewed this patient and I concur with the Shift Assessment completed by the Licensed Practical Nurse today this shift.
[2019-12-02 04:00] VITALS: BP 111/57
[2019-12-02 05:46] LABS: ANION GAP 9.8 mmol/L (8-16); CALCIUM 8.4 mg/dL (8.5-10.1); CARBON DIOXIDE 28.3 mmol/L (21.0-32.0); CREATININE - SERUM 1.3 mg/dL (0.6-1.3); POTASSIUM - SERUM 4.1 mmol/L (3.5-5.1)
[2019-12-02 06:12] LABS: BASOPHILS 0.5 % (0-2); HEMATOCRIT 29.4 % (36.0-48.0); HEMOGLOBIN 9.1 g/dL (12-16); IMMATURE GRANULOCYTES 0.2 % (0-5); LYMPHOCYTES 38.3 % (15-50); MCV 87.2 fL (80.0-100.0); MEAN PLATELET VOLUME 9.2 fL (7.4-10.4); MONOCYTES 8.9 % (2-11); NEUTROPHILS 49.1 % (40-80); PLATELET COUNT 236 10x3/uL (130-400); RBC 3.37 10x6/uL (4.00-5.40); RDW 16.4 % (11.5-14.5)
[2019-12-02 08:57] VITALS: BP 121/67
[2019-12-02 12:02] VITALS: BP 123/73
--- NOTE | 2019-12-02 18:36 | MORECARE ---
CASE MANAGEMENT DISCHARGE SUMMARY PATIENT: JO GARCIA UNIT: [id number] ADM DATE: 11/26/19 AGE: 59 : 62 SEX: F ROOM/BED: D.1536 AUTHOR: MIGNON,DOC PHYSICIAN: REFERRING PHYSICIAN: CHELSEY MORAN MD DATE OF SERVICE: 12/02/19 Discharge Plan Patient Name: JO GARCIA Facility: [facility]:[place] : 1960 Planned Disposition: Home with Home Health Anticipated Discharge Date: 12/01/19 Discharge Date: 12/02/2019 Expected LOS: 5 Initial Reviewer: [email or web address] Initial Review Date: 12/01/2019 Generated: 12/02/19 7:35 pm DCP- Discharge Planning Updated by [email or web address]: Enrique Garcia on 12/01/19 4:[address] Patient Name: JO GARCIA Admission Status: ER Accout number: [id number] Admission Date: 11-26-2019 : 1960 Admission Diagnosis: Attending: SJ Current LOS: 5 Anticipated DC Date: 12-01-2019 Planned Disposition: Home with Home Health Primary Insurance: MEDICAID [place] PLANNED EXTERNAL PROVIDER: [facility] Discharge Planning Comments: CM RECEIVED ORDER FOR LARGE ENGINE ASSEMBLER CARE PLACEMENT OR REHAB PLACEMENT. CM MET WITH PT IN ROOM TO DISCUSS DISCHARGE PLANNING AND NEEDS. PT REPORTS LIVING AT HOME INDEPENDENTLY AND ALONE. PT HAS POWER WHEELCHAIR AND HOME OXYGEN FROM UNKNOWN PROVIDER. PT HAS HOME HEALTH WITH [facility]. CM DISCUSSED AVAILABILITY OF HOME HEALTH, REHAB SERVICES AND MEDICAL EQUIPMENT. PT REFUSED PLACEMENT AND REPORTS SHE CAN GO HOME AND GET THERAPY AT HOME OR OUTPATIENT AT [facility]. PT WOULD RATHER HAVE HOME HEALTH THERAPY, REPORTS SHE WILL NEED MEDICAID TRANSPORTATION CALLED TO PICK HER UP FOR DISCHARGE HOME. CM [facility]ED [facility], , SPOKE TO NETTIE AND PROVIDED REFERRAL INFORMATION, FAXED REFERRAL TO [facility] AT [phone]. PT ON SCHEDULE FOR RESUMPTION OF HOME HEALTH ON FRIDAY. CM NOTIFIED SORT MANAGER BREASHEARS OF DISCHARGE ARRANGEMENTS. PT WILL NEED MEDICAID TRANSPORATION ARRANGE FOR DISCHARGE HOME, . Creative Guru: Enrique Garcia DCPIA - Discharge Planning Initial Assessment Updated by [email or web address]: Enrique Garcia on 12/01/19 4:53 pm * Is the patient Alert and Oriented? Yes * How many steps to enter\exit or inside your home? NONE * PCP DR. MORAN * Pharmacy [facility] * Preadmission Environment Home Alone * ADLs Independent * Equipment Oxygen Power Chair or Electric Scooter * Other Equipment OXYGEN AT NIGHT, UNKNOWN PROVIDER POWER CHAIR * List name and contact numbers for known caregivers / representatives who currently or will assist patient after discharge: SIMON BRYANT, * Verbal permission to speak to the caregivers and representatives has been obtained from the patient. N/A * Community resources currently utilized Home Health * Please name any agencies selected above. [facility] * Additional services required to return to the preadmission environment? No * Can the patient safely return to the preadmission environment? Yes * Has this patient been hospitalized within the prior 30 days at any hospital? Yes Coverage Notice Reviewer: [id number] - Enrique Garcia Notice Issued Date-Time: 12/01/2019 9:55 Notice Type: Patient Choice Letter Notice Delivered To: Patient Relationship to Patient: Environmental Specialist Name: Delivery Method: HAND - Hand Delivered Katie Days: Prior Verbal Notification: Recipient Understood Notice: Yes Recipient Signature: Yes Med Rec Note Co-signed by Attending: Coverage Notice Comment: [facility] DP export: 12/01/19 4:13 p Patient Name: JO GARCIA Page 13190 at 1836 All edits/amendments must be made on the electronic document DICTATION DATE: 12/02/191834 PRODUCER ASSISTANT: EMIR 12/02/191834 RPT#: [id number] DC DATE:12/02/19 STATUS: DIS IN [facility] [address] [place] [address] END OF REPORT
--- NOTE | 2019-12-02 18:43 | MORECARE ---
CASE MANAGEMENT DISCHARGE SUMMARY PATIENT: JO GARCIA UNIT: [id number] ADM DATE: 11/26/19 AGE: 59 : 62 SEX: F ROOM/BED: D.0787 AUTHOR: MIGNON,DOC PHYSICIAN: REFERRING PHYSICIAN: CHELSEY MORAN MD DATE OF SERVICE: 12/02/19 Discharge Plan Patient Name: JO GARCIA Facility: [facility]:[place] : 1960 Planned Disposition: Home with Home Health Anticipated Discharge Date: 12/01/19 Discharge Date: 12/02/2019 Expected LOS: 5 Initial Reviewer: [id number] Initial Review Date: 12/01/2019 Generated: 12/02/19 7:42 pm Comments DCP- Discharge Planning Updated by [email or web address]: Enrique Garcia on 12/02/19 5:[address] Patient Name: JO GARCIA Encounter No: [id number] : 1960 Primary Insurance: MEDICAID [place] Anticipated DC Date: 12-01-2019 Planned Disposition: Home with Home Health External Planned Provider: [facility] DCP follow-up note: CM FAXED DISCHARGE INFORMATION TO [facility] AT [phone]. PT ON SCHEDULE FOR RESUMPTION OF HOME HEALTH ON FRIDAY. JOSÉ MIGUEL Nieves DCP- Discharge Planning Updated by [id number]: Enrique Garcia on 12/01/19 4:[address] Patient Name: JO GARCIA Admission Status: ER Accout number: [id number] Admission Date: 11-26-2019 : 1960 Admission Diagnosis: Attending: SJ Current LOS: 5 Anticipated DC Date: 12-01-2019 Planned Disposition: Home with Home Health Primary Insurance: MEDICAID [place] PLANNED EXTERNAL PROVIDER: [facility] Discharge Planning Comments: CM RECEIVED ORDER FOR TISSUE TECHNICIAN CARE PLACEMENT OR REHAB PLACEMENT. CM MET WITH PT IN ROOM TO DISCUSS DISCHARGE PLANNING AND NEEDS. PT REPORTS LIVING AT HOME INDEPENDENTLY AND ALONE. PT HAS POWER WHEELCHAIR AND HOME OXYGEN FROM UNKNOWN PROVIDER. PT HAS HOME HEALTH WITH [facility]. CM DISCUSSED AVAILABILITY OF HOME HEALTH, REHAB SERVICES AND MEDICAL EQUIPMENT. PT REFUSED PLACEMENT AND REPORTS SHE CAN GO HOME AND GET THERAPY AT HOME OR OUTPATIENT AT [facility]. PT WOULD RATHER HAVE HOME HEALTH THERAPY, REPORTS SHE WILL NEED MEDICAID TRANSPORTATION CALLED TO PICK HER UP FOR DISCHARGE HOME. CM CALLED [facility], , SPOKE TO NETTIE AND PROVIDED REFERRAL INFORMATION, FAXED REFERRAL TO [facility] AT [phone]. PT ON SCHEDULE FOR RESUMPTION OF HOME HEALTH ON FRIDAY. CM NOTIFIED JASWANT MALONE OF DISCHARGE ARRANGEMENTS. PT WILL NEED MEDICAID TRANSPORATION ARRANGE FOR DISCHARGE HOME, . Outsole Skiver: Enrique Garcia DCPIA - Discharge Planning Initial Assessment Updated by [email or web address]: Enrique Garcia on 12/01/19 4:53 pm * Is the patient Alert and Oriented? Yes * How many steps to enter\exit or inside your home? NONE * PCP DR. MORAN * Pharmacy [facility] * Preadmission Environment Home Alone * ADLs Independent * Equipment Oxygen Power Chair or Electric Scooter * Other Equipment OXYGEN AT NIGHT, UNKNOWN PROVIDER POWER CHAIR * List name and contact numbers for known caregivers / representatives who currently or will assist patient after discharge: SIMON BRYANT, * Verbal permission to speak to the caregivers and representatives has been obtained from the patient. N/A * Community resources currently utilized Home Health * Please name any agencies selected above. [facility] * Additional services required to return to the preadmission environment? No * Can the patient safely return to the preadmission environment? Yes * Has this patient been hospitalized within the prior 30 days at any hospital? Yes Coverage Notice Reviewer: [id number] - Enrique Garcia Notice Issued Date-Time: 12/01/2019 9:55 Notice Type: Patient Choice Letter Notice Delivered To: Patient Relationship to Patient: Business Systems Technician Name: Delivery Method: HAND - Hand Delivered Katie Days: Prior Verbal Notification: Recipient Understood Notice: Yes Recipient Signature: Yes Med Rec Note Co-signed by Attending: Coverage Notice Comment: [facility] OR OP THERAPY AT [facility] Last DP export: 12/02/19 5:36 p Patient Name: JO GARCIA Page [id number] at 1843 All edits/amendments must be made on the electronic document DICTATION DATE: 03/12/20 1842 CELLULAR BIOLOGIST: EMIR 12/02/191841 RPT#: [id number] DC DATE:12/02/19 STATUS: DIS IN [facility] [address] [place] [address] END OF REPORT
== END 2019-12-02 18:20 | disposition home health service (06) | DRG 948 ==
LOC: D.ER 15:54 → D.M2 19:01 → OBSVTIME 19:01 → D.M2 19:01
PROVIDERS: Family Medicine; Legal Medicine; ADMIT Emergency Medicine; ATTEND Emergency Medicine
DX: R53.1 Weakness (principal); R10.9 Unspecified abdominal pain; J44.9 Chronic obstructive pulmonary disease, unspecified; D64.9 Anemia, unspecified; M25.552 Pain in left hip; E11.40 Type 2 diabetes mellitus with diabetic neuropathy, unspecified; K21.9 Gastro-esophageal reflux disease without esophagitis; I11.0 Hypertensive heart disease with heart failure; I50.9 Heart failure, unspecified

== ENCOUNTER → 2019-12-31 10:10 | Outpatient (CLI) | payer MEDICAID | END | disposition home or self-care (01) | LOC: D.RAD 10:10 | PROVIDERS: ATTEND Emergency Medicine | DX: R05 Cough (principal); R06.02 Shortness of breath ==

== ENCOUNTER 2020-11-24 11:59 | Emergency (ER) | payer MEDICAID ==
[~2020-11-24] VITALS: Ht 175.3 cm; Wt 122.7 kg
[2020-11-24 12:00] VITALS: Ht 175.3 cm; Wt 122.7 kg
[2020-11-24 12:51] LABS: CALC OSMOLALITY 277 mosm/kg (275-300); CALCIUM 8.6 mg/dL (8.5-10.1); CARBON DIOXIDE 27.7 mmol/L (21.0-32.0); CHLORIDE - SERUM 104 mmol/L (98-107); CREATININE - SERUM 1.1 mg/dL (0.6-1.3); POTASSIUM - SERUM 3.3 mmol/L (3.5-5.1); SODIUM 138 mmol/L (136-145); UREA NITROGEN 9 mg/dL (7-18); eGFR NON AFRICAN AMERICAN 54 mL/min (90-120)
[2020-11-24 12:52] LABS: APTT 30.2 SECONDS (22.8-39.4); GLUCOSE 152 mg/dL (74-106); INR 1.04 (0.85-1.17); PROTIME 12.6 SECONDS (11.6-15.0)
[2020-11-24 12:53] LABS: BASOPHILS 0.1 % (0-2); EOSINOPHILS 2.8 % (0-7); HEMATOCRIT 40.7 % (36.0-48.0); HEMOGLOBIN 12.6 g/dL (12-16); IMMATURE GRANULOCYTES 0.1 % (0-5); LYMPHOCYTE ABS# 2.27 10x3/uL (1.18-3.74); LYMPHOCYTES 28.6 % (15-50); MCV 84.1 fL (80.0-100.0); MEAN PLATELET VOLUME 9.4 fL (7.4-10.4); MONOCYTES 6.7 % (2-11); NEUTROPHIL ABS# 4.91 10x3/uL (1.56-6.13); NEUTROPHILS 61.7 % (40-80); RBC 4.84 10x6/uL (4.00-5.40); RDW 16.7 % (11.5-14.5)
[2020-11-24 12:54] LABS: PLATELET COUNT 348 10x3/uL (130-400)
[2020-11-24 13:01] LABS: ALBUMIN 2.7 g/dL (3.4-5.0); ALKALINE PHOSPHATASE 139 U/L (30-120); ALT (SGPT) 26 U/L (10-68); BILIRUBIN - TOTAL 0.25 mg/dL (0.2-1.3); CKMB 1.1 U/L (0.0-3.6); CREATINE KINASE 177 UL (21-215); PRO BNP 47 pg/mL (0-125); PROTEIN - SERUM 7.4 g/dL (6.4-8.2); TROPONIN-I < 0.017 ng/mL (0.000-0.060)
[2020-11-24 14:23] LABS: SARS-CoV-2 ANTIGEN NEGATIVE- SARS-COV-2 (NEGATIVE)
[2020-11-24] MEDS ORDERED: ZPAK PO (15:06)
[2020-11-24] MEDS ORDERED: ALBUTEROL SULF8.5 GM INH (15:06)
[2020-11-24] MEDS ORDERED: MUCINEX DM ER1 EAC1 PO (15:06)
[2020-11-24 15:45] VITALS: BP 145/92
== END 2020-11-24 15:47 | disposition home or self-care (01) ==
LOC: D.ER 11:59
PROVIDERS: Family Medicine
DX: R05 Cough (principal); J06.9 Acute upper respiratory infection, unspecified; E11.40 Type 2 diabetes mellitus with diabetic neuropathy, unspecified; I11.0 Hypertensive heart disease with heart failure; I50.9 Heart failure, unspecified; J45.909 Unspecified asthma, uncomplicated; K21.9 Gastro-esophageal reflux disease without esophagitis; Z72.0 Tobacco use; Z79.84 Long term (current) use of oral hypoglycemic drugs

== ENCOUNTER 2021-03-05 10:42 | Emergency (ER) | payer MEDICAID ==
[~2021-03-05] VITALS: Ht 175.3 cm; Wt 109.1 kg
[~2021-03-05 10:42] MED LIST changes: +ALBUTEROL SULF8.5 GM INH; +MUCINEX DM ER1 EAC1 PO; +ZPAK PO
[2021-03-05 10:56] VITALS: BP 119/82; Ht 175.3 cm; Wt 109.1 kg
== END 2021-03-05 14:48 | disposition home or self-care (01) ==
LOC: D.ER 10:42
DX: M17.12 Unilateral primary osteoarthritis, left knee (principal); J90 Pleural effusion, not elsewhere classified; E11.40 Type 2 diabetes mellitus with diabetic neuropathy, unspecified; I11.0 Hypertensive heart disease with heart failure; I50.9 Heart failure, unspecified; K21.9 Gastro-esophageal reflux disease without esophagitis; Z72.0 Tobacco use; Z79.84 Long term (current) use of oral hypoglycemic drugs